=== PATIENT | female | born 1960 | race Caucasian/White ===

== ENCOUNTER → 2016-02-26 | Outpatient (REF) | payer OTHER ==
[~2016-02-26] MED LIST: /MOM400 PO; /ONDA4TA OR; ACET500C PO; ACET65TA OR; ASPI325T PO; ATOR40TA PO; CARV6.25 PO; CIPRODEX AD; COLA100C2; COLA50CA3 PO; EFFI10TA4 PO; EMLA2.5C TOP; FLAG500T PO; FURO20TA2 PO; HYDR25TA8 OR; IBUPPOW25; ISOS60TA2 PO; LIDO1DIS2 TD; LORTAB; MILKSUS OR; MOTRIN; Motrin; NAPR375T2 PO; NEUR300C PO; NO HISTORICAL MEDS; PERC7.5T8 OR; PREDNISONE TAPER PO; PREVACID15 PO; SENO8.6T11 PO; SENO8.6T9 GT; VALT1TAB PO; VICO5TAB; VIT D3 PO; VITA500047 PO; VITAMIN; VITAMIND; Vicodin; ZOCOR20 PO; ZOFR4TAB3 PO; [UNRECOGNIZED DRUG - CODE] PO; [UNRECOGNIZED DRUG - CODE] PO
== END ==
LOC: M LAB REF 20:20
PROVIDERS: ATTEND Physician Assistant
DX: R30.0 Dysuria (principal)

== ENCOUNTER 2016-02-28 20:55 | Emergency (ER) | payer OTHER ==
[2016-02-28] MEDS ORDERED: ONDANSETRON 4MG/2ML VIAL (J2405) As Ordered ONE (22:51)
[2016-02-28] MEDS ORDERED: KETOROLAC 30 MG/ML VIAL (J1885) As Ordered ONE (22:51)
[2016-02-28 23:07] LABS: BASO # 0.1 K/mm3 (0.0-0.2); BASO % 1.7 % (0.0-1.0); EOS # 0.2 K/mm3 (0.0-0.50); EOS % 2.7 % (0.0-3.0); LARGE UNSTAINED CELL # 0.2 K/mm3 (0.0-0.4); LARGE UNSTAINED CELL % 2.7 % (0.0-4.0); LYMPH # 3.8 K/mm3 (1.5-4.5); MEAN CORPUSCULAR HEMOGLOBIN 28.4 pg (27.0-33.0); MEAN CORPUSCULAR HGB CONC 32.1 g/dl (32.0-36.5); MEAN CORPUSCULAR VOLUME 88.5 fl (80.0-96.0); MONO # 0.4 K/mm3 (0.0-0.8); MONO % 5.3 % (0.0-5.0); NEUTROPHILS # 3.5 K/mm3 (1.8-7.7); NEUTROPHILS % 43.6 % (36.0-66.0); PLATELET COUNT, AUTOMATED 191 k/mm3 (150-450); RED CELL DISTRIBUTION WIDTH 13.9 % (11.5-14.5)
[2016-02-28 23:47] LABS: ALBUMIN 3.8 GM/DL (3.2-5.2); ALBUMIN/GLOBULIN RATIO 1.19 (1.00-1.93); ALKALINE PHOSPHATASE 97 U/L (45-117); ALT/SGPT 17 U/L (12-78); AMYLASE 88 U/L (25-115); ANION GAP 8 MEQ/L (8-16); AST/SGOT 25 U/L (15-37); BILIRUBIN,DIRECT 0.1 MG/DL (0.0-0.2); BILIRUBIN,TOTAL 0.3 MG/DL (0.2-1.0); BLOOD UREA NITROGEN 16 MG/DL (7-18); CALCIUM LEVEL 8.7 MG/DL (8.5-10.1); CARBON DIOXIDE LEVEL 28 MEQ/L (21-32); CHLORIDE LEVEL 107 MEQ/L (98-107); CREATININE FOR GFR 0.77 MG/DL (0.55-1.02); GLOMERULAR FILTRATION RATE > 60.0 (>51); GLUCOSE, FASTING 84 MG/DL (70-105); POTASSIUM SERUM 3.8 MEQ/L (3.5-5.1); SODIUM LEVEL 143 MEQ/L (136-145)
[2016-02-28] MEDS ORDERED: MORPHINE 2 MG/ML 1ML SYRINGE As Ordered ONE (23:53)
[2016-02-28] MEDS ORDERED: ISOVUE-370 76% 100ML VIAL (Q9967) As Ordered ONE (23:53)
[2016-02-29] MEDS ORDERED: ONDANSETRON 4MG/2ML VIAL (J2405) As Ordered ONE (00:30)
--- NOTE | 2016-02-29 00:30 | REPUSA ---
CLINICAL HISTORY: Abdominal pain. TECHNIQUE: Multiple axial, sagittal and coronal CT images were obtained through the abdomen and pelvi s after administration of intravenous contrast material. Images were obtained before and after IV con trast administration. COMMENTS: The liver is of uniform attenuation without mass or defect. There is no intra or extrahepatic biliary ductal dilatation. The spleen is normal. The gallbladder is surgically absent. The pancreas is of no rmal contour and attenuation characteristics. There is no evidence of adrenal mass. Both kidneys demonstrate prompt and equal nephrograms. The kidneys are normal in size, shape and conf iguration. There is no evidence of renal or ureteral mass. No renal or ureteral calculi are identifie d. There is no hydroureter or hydronephrosis. Status post ventral abdominal hernia repair No evidence for appendicitis. There is relatively severe wall thickening noted involving all small b owel segments compatible with enteritis. Jejunum is most involved. No evidence for small or large bowel obstruction. There is no evidence of abdominal ascites or lympha denopathy. There is no evidence of intrinsic or extrinsic bladder mass. There is no pelvic ascites or lymphadeno ann. Status post complete hysterectomy. Images of the lung bases show no evidence of pleural or parenchymal mass. There are no pleural effusi ons. The bony structures are free of lytic or blastic lesions. Multilevel degenerative changes are seen in volving the thoracolumbar spine. Scattered calcifications are seen involving the aorta and major bran ches compatible with atherosclerosis. IMPRESSION: Enteritis, jejunum is most severely involved infectious and inflammatory etiologies are considered.. Thank you for your kind referral of this patient.
--- NOTE | 2016-02-29 01:02 | EDDOCDS ---
Physician Documentation [facility] Name: Nimco Camp Age: 56 yrs Sex: Female : 1960 Arrival Date: 02/28/2016 Time: 20:55 Bed I5 / M5 Private MD: Amy Gil A Disposition: 02/29/16 00:43 Discharged to Home/Self Care. Impression: Generalized abdominal pain - ENTERITIS, Abnormal levels of other serum enzymes - ELEVATED LIPASE. - Condition is Stable. - Discharge Instructions: Abdominal Pain, Adult. - Prescriptions for Cipro 500 mg Oral Tablet - take 1 tablet by ORAL route every 12 hours; 20 tablet. Flagyl 500 mg Oral Tablet - take 1 tablet by ORAL route every 8 hours for 10 days; 30 tablet. Prednisone 20 mg Oral Tablet - take 2 tablet by ORAL route once daily for 5 days; 10 tablet. ZOFRAN ODT 4 mg - dissolve 1 tablet by ORAL route 4 times per day As needed do not chew, do not swallow whole; 10 tablet. - Medication Reconciliation, Local Pharmacy Hours form. - Follow up: Amy Gil; When: 2 - 3 days; Reason: Recheck today's complaints, Continuance of care. - Problem is new. - Symptoms have improved. - Notes: USE MEDICATIONS INSTRUCTED, STOP BACTRIM, FOLLOW UP WITH YOUR DOCTOR TO RECHECK YOUR LIPASE LEVEL, RETURN TO THE ER IF THE SYMPTOMS WORSEN OR BECOME CONCERNING Historical: - Allergies: Vicodin (Rash); Dilaudid; Biaxin (Rash); Bees; - Home Meds: 1. multivitamin Oral tab 1 tab daily (Last dose: 02/27/2016 08:00) 2. aspirin 81 mg Oral chew 1 tab once daily (Last dose: 02/28/2016 08:00) 3. Bactrim DS 800-160 mg Oral tab 2 times per day (Last dose: 02/28/2016 18:00) 4. Coreg 3.125 mg Oral tab 2 times per day (Last dose: 02/28/2016 06:00) 5. omeprazole 20 mg Oral TbEC 20 mg daily (Last dose: 02/28/2016 06:00) 6. nitroglycerin 0.4 mg SL subl 1 tab every 5 minutes (Last dose: Unknown) - PMHx: [place]; - PSHx: Hysterectomy; Carpal Tunnel Repair- Bilateral; Cholecystectomy; Appendectomy; Stents, Coronary; benign tumor removed from abdomen; umbilical hernia repair with mesh; gastric bypass 09/2014; - Social history: Smoking status: Patient states former smoker of tobacco. Patient/guardian denies using alcohol, street drugs, No barriers to communication noted, The patient speaks fluent Albanian, Speaks appropriately for age. - Family history: Not pertinent. - : The pt / caregiver states he / she is not on anticoagulants. Home medication list is obtained from the patient. - Exposure Risk Screening:: None identified. Vital Signs: 02/27 20:56 BP 162 / 79; Pulse 62; Resp 18 S; Temp 98.0(O); Pulse Ox 100% on R/A; Weight 55.79 kg / dd6 123 lbs (R); Height 5 ft. 2 in. (157.48 cm) (R); Pain 09/23; 02/28 00:50 BP 146 / 83; Pulse 89; Resp 18; Temp 98.2; Pulse Ox 96% ; Pain 2/10; ajs 00:59 Pain 2/10; slm 02/27 20:56 Body Mass Index 22.50 (55.79 kg, 157.48 cm) dd6 MDM: 02/27 22:36 Undress patient appropriately for examination ordered. ck7 22:36 Ondansetron 4 mg IVP once ordered. ck7 22:36 ketorolac 30 mg IVP once ordered. ck7 22:36 NS 0.9% 1000 ml IV at bolus once ordered. ck7 22:36 IV Saline Lock ordered. ck7 22:38 Amylase Ordered. EDMS 22:38 Basic Metabolic Profile Ordered. EDMS 22:38 CBC with Diff Ordered. EDMS 22:38 Lipase Ordered. EDMS 22:38 Liver Profile Ordered. EDMS 22:38 Urinalysis Ordered. EDMS 22:38 Urine Culture Ordered. EDMS 22:39 NOTHING BY MOUTH+DIET ordered. EDMS 23:07 Financial registration complete. gjb 23:21 CBC with Diff Reviewed. ck7 23:21 Urinalysis Reviewed. ck7 23:23 CT ABD & PELVIS: IV Contrast Only Ordered. EDMS 23:24 [facility] Payment Agreement was scanned into [employer] and attached to record. gjb 23:48 Lipase Reviewed. ck7 23:48 Amylase Reviewed. ck7 23:48 Basic Metabolic Profile Reviewed. ck7 23:48 Liver Profile Reviewed. ck7 23:50 morphine 2 mg IVP once ordered. ck7 02/28 00:29 Ondansetron 4 mg IVP once ordered. af2 00:38 CT ABD & PELVIS: IV Contrast Only Reviewed. ck7 Administered Medications: 02/27 22:58 Drug: ketorolac 30 mg [ketorolac 30 mg/mL (1 mL) injection solution (1 mL)] Route: IVP; af2 Site: left antecubital; 22:58 Drug: NS 0.9% 1000 ml [sodium chloride 0.9 % intravenous solution] Route: IV; Rate: af2 bolus; Site: left antecubital; 22:59 Drug: Ondansetron 4 mg [ondansetron HCl 2 mg/mL intravenous solution (2 mL)] Route: af2 IVP; Site: left antecubital; 23:58 Drug: morphine 2 mg [morphine 2 mg/mL intravenous cartridge (1 mL)] Route: IVP; Site: af2 left antecubital; 02/28 00:59 Follow up: Pain 2/10 Adult sl 00:33 Drug: Ondansetron 4 mg [ondansetron HCl 2 mg/mL intravenous solution (2 mL)] Route: af2 IVP; Site: left antecubital; 00:59 Follow up: Response: Nausea is decreased slm Signatures: Dispatcher [employer] EDMS Karan Bryant, LEDYC RPA-Cck7 Yasmin Arvizu RN RN ttb Valery Tobin LPN LPN m Kenzie Gentile RN RN af2 Miranda Gayle The chart was reviewed and I authenticate all verbal orders and agree with the evaluation and treatment provided.Attachments: 02/27 23:24 [facility] Payment Agreement [email or web address] [email or web address]
--- NOTE | 2016-02-29 01:02 | EDDOCDS ---
Nurse's Notes [facility] Name: Nimco Camp Age: 56 yrs Sex: Female : 1960 Arrival Date: 02/28/2016 Time: 20:55 Bed I5 / M5 Private MD: Amy Gil A Diagnosis: Generalized abdominal pain-ENTERITIS;Abnormal levels of other serum enzymes-ELEVATED LIPASE Presentation: 02/27 21:02 Presenting complaint: Patient states: "possible kidney stone, I think". Seen at Urgent ttb Care on with negative UA. "extreme lower abd and lower back pain". Denies dysuria, hematuria. Acute neurological deficits are not present. Mechanism of Injury: No Mechanism of Injury. Adult Sepsis Screening: The patient does not have new or worsening altered mentation. Patient's respiratory rate is less than 22. Systolic blood pressure is greater than 100. Patient has a qSOFA score of 0- Negative Sepsis Screen. Suicide/Homicide risk assessment- the patient denies having any suicidal and/or homicidal ideations and does not present with any other emotional, behavioral or mental health complaints. Status: The patient is a dependent. Transition of care: patient was not received from another setting of care. 21:02 Acuity: LUANN Level 3 ttb 21:02 Method Of Arrival: Walkin/Carried/Asstd ttb Triage Assessment: 21:06 General: Appears in no apparent distress, well nourished, well groomed, Behavior is ttb appropriate for age, cooperative, pleasant. Pain: Location: lower abd and lower back Pain currently is 7 out of 10 on a pain scale. HIV screening NA for this visit Offered previously. Neurological: Level of Consciousness is awake, alert. Cardiovascular: Chest pain is denied. Respiratory: No deficits noted. Airway is patent Respiratory effort is even, unlabored, Denies cough, shortness of breath. GI: Reports diarrhea, lower abdominal pain, nausea. : Denies burning with urination, urinary frequency, urgency. Derm: Skin is normal. Musculoskeletal: Range of motion intact in all extremities. Historical: - Allergies: Vicodin (Rash); Dilaudid; Biaxin (Rash); Bees; - Home Meds: 1. multivitamin Oral tab 1 tab daily (Last dose: 02/27/2016 08:00) 2. aspirin 81 mg Oral chew 1 tab once daily (Last dose: 02/28/2016 08:00) 3. Bactrim DS 800-160 mg Oral tab 2 times per day (Last dose: 02/28/2016 18:00) 4. Coreg 3.125 mg Oral tab 2 times per day (Last dose: 02/28/2016 06:00) 5. omeprazole 20 mg Oral TbEC 20 mg daily (Last dose: 02/28/2016 06:00) 6. nitroglycerin 0.4 mg SL subl 1 tab every 5 minutes (Last dose: Unknown) - PMHx: [place]; - PSHx: Hysterectomy; Carpal Tunnel Repair- Bilateral; Cholecystectomy; Appendectomy; Stents, Coronary; benign tumor removed from abdomen; umbilical hernia repair with mesh; gastric bypass 09/2014; - Social history: Smoking status: Patient states former smoker of tobacco. Patient/guardian denies using alcohol, street drugs, No barriers to communication noted, The patient speaks fluent Divehi, Speaks appropriately for age. - Family history: Not pertinent. - : The pt / caregiver states he / she is not on anticoagulants. Home medication list is obtained from the patient. - Exposure Risk Screening:: None identified. Screenin:59 Screening information is obtained from the patient. Fall risk: No risks identified. af2 Assistance ADL's: requires no assistance with activities of daily living. Abuse/DV Screen: The patient / caregiver reports he/she is: not in a situation that causes fear, pain or injury. Nutritional screening: No deficits noted. Advance Directives: Currently, there is no health care proxy. home support is adequate. Assessment: 22:57 General: Appears in no apparent distress, Behavior is cooperative. Neurological: Level ms2 of Consciousness is awake, alert, obeys commands. Respiratory: No deficits noted. Airway is patent Respiratory effort is even, unlabored, Respiratory pattern is regular, symmetrical. GI: Abdomen is flat, non- distended. Derm: Skin is pink, warm & dry. Musculoskeletal: Range of motion intact in all extremities. 23:49 General: Appears in no apparent distress, Behavior is cooperative, rr even and af2 unlabored. skin w/d/i. pt c/o further pain. provider notified. no new orders received. will continue to monitor. . 02/28 00:09 General: pt transported to CT at this time, tolerated procedure well. PIV patent, free af2 of edema and erythema. pt c/o nausea, provider notified.. 00:33 General: Appears in no apparent distress, Behavior is cooperative, pt medicated for af2 nausea per order at this time. rr even and unlabored. skin w/d/i. . Neurological: Level of Consciousness is awake, alert. Respiratory: Airway is patent Respiratory effort is even, unlabored. Derm: Skin is normal. 00:58 Reassessment: Patient appears in no apparent distress at this time. Patient states slm feeling better. Patient states symptoms have improved. General: Appears in no apparent distress, comfortable. Respiratory: Airway is patent Respiratory effort is even, unlabored. Vital Signs: 02/27 20:56 BP 162 / 79; Pulse 62; Resp 18 S; Temp 98.0(O); Pulse Ox 100% on R/A; Weight 55.79 kg dd6 (R); Height 5 ft. 2 in. (157.48 cm) (R); Pain 8/10; 02/28 00:50 BP 146 / 83; Pulse 89; Resp 18; Temp 98.2; Pulse Ox 96% ; Pain 2/10; ajs 00:59 Pain 2/10; slm 02/27 20:56 Body Mass Index 22.50 (55.79 kg, 157.48 cm) dd6 Vitals: 02/27 20:56 Log In Time: February 28, 2016 at 20:54. dd6 ED Course: 20:56 Patient visited by Junior Morales PCA. dd6 20:56 Amy Gil is Private Physician. dd6 20:56 Patient moved to Waiting dd6 20:57 Patient moved to Pre RCE dd6 21:03 Triage Initiated ttb 21:07 Patient visited by Yasmin Arvizu RN. ttb 21:57 Patient moved to Triage 2 jmb 22:24 [facility]C [facility] ck7 22:24 Jey Saenz DO is Attending Physician. ck7 22:24 Patient visited by Karan Bryant RPA-C. ck7 22:37 Patient moved to I5 / jmb 22:56 Patient visited by Kamran Stone RN. ms2 22:56 Amylase Sent. ms2 22:56 Basic Metabolic Profile Sent. ms2 22:56 CBC with Diff Sent. ms2 22:56 Lipase Sent. ms2 22:56 Liver Profile Sent. ms2 22:57 The patient / caregiver is instructed regarding the plan of care and ED course. ms2 22:57 Inserted peripheral IV: 20gauge IV in left antecubital area Patient tolerated the ms2 procedure well. 22:59 Patient visited by Kenzie eGntile RN. af2 23:24 [facility] Payment Agreement was scanned into [employer] and attached to record. gjb 23:35 Patient visited by Karan Bryant RPA-C. ck7 23:52 Patient visited by Kenzie Gentile RN. af2 02/28 00:09 Patient visited by Kenzie Gentile RN. af2 00:10 Patient visited by Kenzie Gentile RN. af2 00:34 Patient visited by Kenzie Gentile RN. af2 00:36 CT ABD & PELVIS: IV Contrast Only Returned. EDMS 00:43 Amy Gil is Referral Physician. ck7 00:52 Patient visited by Arabella Rosas. ajs 00:58 Valery Tobin LPN is Primary Nurse. slm 00:58 Discontinued lock intact, bleeding controlled, pressure dressing applied, No slm redness/swelling at site. No procedures done that require assistance. 01:00 Patient visited by Valery Tobin LPN. slm Administered Medications: 02/27 22:58 Drug: ketorolac 30 mg [ketorolac 30 mg/mL (1 mL) injection solution (1 mL)] Route: IVP; af2 Site: left antecubital; 22:58 Drug: NS 0.9% 1000 ml [sodium chloride 0.9 % intravenous solution] Route: IV; Rate: af2 bolus; Site: left antecubital; 22:59 Drug: Ondansetron 4 mg [ondansetron HCl 2 mg/mL intravenous solution (2 mL)] Route: af2 IVP; Site: left antecubital; 23:58 Drug: morphine 2 mg [morphine 2 mg/mL intravenous cartridge (1 mL)] Route: IVP; Site: af2 left antecubital; 02/28 00:59 Follow up: Pain 03/26 Adult slm 00:33 Drug: Ondansetron 4 mg [ondansetron HCl 2 mg/mL intravenous solution (2 mL)] Route: af2 IVP; Site: left antecubital; 00:59 Follow up: Response: Nausea is decreased slm Order Results: Lab Order: Amylase; SPEC'M 02/28/16 22:49 Test: AMYLASE; Value: 88; Range: 25-115; Units: U/L; Status: F Lab Order: Basic Metabolic Profile; SPEC'M 02/28/16 22:49 Test: GLUCOSE, FASTING; Value: 84; Range: 70-105; Units: MG/DL; Status: F Test: BLOOD UREA NITROGEN; Value: 16; Range: 7-18; Units: MG/DL; Status: F Test: CREATININE FOR GFR; Value: 0.77; Range: 0.55-1.02; Units: MG/DL; Status: F Test: GLOMERULAR FILTRATION RATE; Value: > 60.0; Range: >51; Status: F Test: SODIUM LEVEL; Value: 143; Range: 136-145; Units: MEQ/L; Status: F Test: POTASSIUM SERUM; Value: 3.8; Range: 3.5-5.1; Units: MEQ/L; Status: F Test: CHLORIDE LEVEL; Value: 107; Range: 98-107; Units: MEQ/L; Status: F Test: CARBON DIOXIDE LEVEL; Value: 28; Range: 21-32; Units: MEQ/L; Status: F Test: ANION GAP; Value: 8; Range: 8-16; Units: MEQ/L; Status: F Test: CALCIUM LEVEL; Value: 8.7; Range: 8.5-10.1; Units: MG/DL; Status: F Test Note: ; Units are mL/min/1.73 m2 Chronic Kidney Disease Staging per NKF: Stage I & II GFR >=60 Normal to Mildly Decreased Stage III GFR 30-59 Moderately Decreased Stage IV GFR 15-29 Severely Decreased Stage V GFR <15 Very Little GFR Left ESRD GFR <15 on LODE [employer] BLASTING Lab Order: CBC with Diff; SPEC'M 02/28/16 22:49 Test: WHITE BLOOD COUNT; Value: 8.0; Range: 4.0-10.0; Units: K/mm3; Status: F Test: RED BLOOD COUNT; Value: 4.25; Range: 4.00-5.40; Units: M/mm3; Status: F Test: HEMOGLOBIN; Value: 12.1; Range: 12.0-16.0; Units: g/dl; Status: F Test: HEMATOCRIT; Value: 37.6; Range: 36.0-47.0; Units: %; Status: F Test: MEAN CORPUSCULAR VOLUME; Value: 88.5; Range: 80.0-96.0; Units: fl; Status: F Test: MEAN CORPUSCULAR HEMOGLOBIN; Value: 28.4; Range: 27.0-33.0; Units: pg; Status: F Test: MEAN CORPUSCULAR HGB CONC; Value: 32.1; Range: 32.0-36.5; Units: g/dl; Status: F Test: RED CELL DISTRIBUTION WIDTH; Value: 13.9; Range: 11.5-14.5; Units: %; Status: F Test: PLATELET COUNT, AUTOMATED; Value: 191; Range: 150-450; Units: k/mm3; Status: F Test: NEUTROPHILS %; Value: 43.6; Range: 36.0-66.0; Units: %; Status: F Test: LYMPH %; Value: 44.0; Range: 24.0-44.0; Units: %; Status: F Test: MONO %; Value: 5.3; Range: 0.0-5.0; Abnormal: Above high normal; Units: %; Status: F Test: EOS %; Value: 2.7; Range: 0.0-3.0; Units: %; Status: F Test: BASO %; Value: 1.7; Range: 0.0-1.0; Abnormal: Above high normal; Units: %; Status: F Test: LARGE UNSTAINED CELL %; Value: 2.7; Range: 0.0-4.0; Units: %; Status: F Test: NEUTROPHILS #; Value: 3.5; Range: 1.8-7.7; Units: K/mm3; Status: F Test: LYMPH #; Value: 3.8; Range: 1.5-4.5; Units: K/mm3; Status: F Test: MONO #; Value: 0.4; Range: 0.0-0.8; Units: K/mm3; Status: F Test: EOS #; Value: 0.2; Range: 0.0-0.50; Units: K/mm3; Status: F Test: BASO #; Value: 0.1; Range: 0.0-0.2; Units: K/mm3; Status: F Test: LARGE UNSTAINED CELL #; Value: 0.2; Range: 0.0-0.4; Units: K/mm3; Status: F Lab Order: Lipase; [facility] 02/28/16 22:49 Test: LIPASE; Value: 443; Range: 73-393; Abnormal: Above high normal; Units: U/L; Status: F Lab Order: Liver Profile; [facility] 02/28/16 22:49 Test: AST/SGOT; Value: 25; Range: 15-37; Units: U/L; Status: F Test: ALT/SGPT; Value: 17; Range: 12-78; Units: U/L; Status: F Test: ALKALINE PHOSPHATASE; Value: 97; Range: 45-117; Units: U/L; Status: F Test: BILIRUBIN,TOTAL; Value: 0.3; Range: 0.2-1.0; Units: MG/DL; Status: F Test: BILIRUBIN,DIRECT; Value: 0.1; Range: 0.0-0.2; Units: MG/DL; Status: F Test: TOTAL PROTEIN; Value: 7.0; Range: 6.4-8.2; Units: GM/DL; Status: F Test: ALBUMIN; Value: 3.8; Range: 3.2-5.2; Units: GM/DL; Status: F Test: ALBUMIN/GLOBULIN RATIO; Value: 1.19; Range: 1.00-1.93; Status: F Lab Order: Urinalysis; [facility] 02/28/16 22:40 Test: APPEARANCE, URINE; Value: CLEAR; Range: CLEAR; Status: F Test: COLOR, URINE; Value: YELLOW; Range: YELLOW; Status: F Test: PH,URINE; Value: 6.0; Range: 5.0-9.0; Units: UNITS; Status: F Test: SPECIFIC GRAVITY URINE AUTO; Value: 1.018; Range: 1.002-1.035; Status: F Test: PROTEIN, URINE AUTO; Value: NEGATIVE; Range: NEGATIVE; Units: mg/dL; Status: F Test: GLUCOSE, URINE (UA) AUTO; Value: NEGATIVE; Range: NEGATIVE; Units: mg/dL; Status: F Test: KETONE, URINE AUTO; Value: NEGATIVE; Range: NEGATIVE; Units: mg/dL; Status: F Test: UROBILINOGEN, URINE AUTO; Value: 0.2; Range: 0.0-2.0; Units: mg/dL; Status: F Test: BILIRUBIN, URINE AUTO; Value: NEGATIVE; Range: NEGATIVE; Status: F Test: NITRITE, URINE AUTO; Value: NEGATIVE; Range: NEGATIVE; Status: F Test: LEUKOCYTE ESTERASE, URINE AUTO; Value: TRACE; Range: NEGATIVE; Abnormal: Above high normal; Status: F Test: BLOOD, URINE BLOOD; Value: NEGATIVE; Range: NEGATIVE; Status: F Test: WBC, URINE AUTO; Value: 1; Range: 0-3; Units: /HPF; Status: F Test: RBC, URINE AUTO; Value: 0; Range: 0-3; Units: /HPF; Status: F Test: BACTERIA, URINE AUTO; Value: NEGATIVE; Range: NEGATIVE; Status: F Test: SQUAMOUS EPITHELIAL CELL UR AU; Value: 0; Range: 0-6; Units: /HPF; Status: F Test: HYALINE CAST, URINE AUTO; Value: 0; Range: 0-1; Units: /LPF; Status: F Radiology Order: CT ABD & PELVIS: IV Contrast Only Test: CT ABD & PELVIS: IV Contrast Only REASON FOR EXAMINATION: LEFT FLANK AND ABDOMINAL PAIN; ; CLINICAL HISTORY: Abdominal pain.; TECHNIQUE: Multiple axial, sagittal and coronal CT images were obtained through the abdomen and pelvi; s after administration of intravenous contrast material. Images were obtained before and after IV con; trast administration.; COMMENTS:; The liver is of uniform attenuation without mass or defect. There is no intra or extrahepatic biliary; ductal dilatation. The spleen is normal. The gallbladder is surgically absent. The pancreas is of no; rmal contour and attenuation characteristics. There is no evidence of adrenal mass.; Both kidneys demonstrate prompt and equal nephrograms. The kidneys are normal in size, shape and conf; iguration. There is no evidence of renal or ureteral mass. No renal or ureteral calculi are identifie; d. There is no hydroureter or hydronephrosis.; Status post ventral abdominal hernia repair; No evidence for appendicitis. There is relatively severe wall thickening noted involving all small b; owel segments compatible with enteritis. Jejunum is most involved.; No evidence for small or large bowel obstruction. There is no evidence of abdominal ascites or lympha; denopathy.; There is no evidence of intrinsic or extrinsic bladder mass. There is no pelvic ascites or lymphadeno; ann. Status post complete hysterectomy.; Images of the lung bases show no evidence of pleural or parenchymal mass. There are no pleural effusi; ons.; The bony structures are free of lytic or blastic lesions. Multilevel degenerative changes are seen in; volving the thoracolumbar spine. Scattered calcifications are seen involving the aorta and major bran; ches compatible with atherosclerosis.; IMPRESSION:; Enteritis, jejunum is most severely involved infectious and inflammatory etiologies are considered..; Thank you for your kind referral of this patient.; ; Outcome: 00:43 Discharge ordered by Provider. ck7 00:59 Discharge Assessment: Patient awake, alert and oriented x 3. No cognitive and/or slm functional deficits noted. Patient verbalized understanding of disposition instructions. 00:59 Discharge Assessment: Patient awake, alert and oriented x 3. No cognitive and/or slm functional deficits noted. Patient verbalized understanding of disposition instructions. patient administered narcotics - yes. Pt provided with safe discharge. The following High Risk Discharge criteria are identified: None. Discharged to home ambulatory, with friend. Condition: good. Discharge instructions given to patient, Instructed on discharge instructions, follow up and referral plans. medication usage, Demonstrated understanding of instructions, medications, Pt was receptive of discharge instructions/ teaching. Prescriptions given X 4. CT Study completed. Property :Personal belongings accompany Pt. 01:01 Patient left the ED. slm Signatures: Dispatcher [employer] EDMS Kamran Stone,RN RN ms2 Junior Morales, MECHANICAL APPLICATIONS ENGINEER MECHANICAL APPLICATIONS ENGINEER dd6 Arabella Rosas Christopher, RPA-C RPA-Cck7 Yasmin Arvizu RN Jayy Rudolph RN RN jmb McIntyre, Stephanie,GUILHERME [employer]MED C[employer] PROTECTION OFFICER slKenzie Corcoran RN RN af2 Beck, Gabriela gjb MTDD
--- NOTE | 2016-03-02 02:02 | EDDOCDS ---
Physician Documentation [facility] Name: Nimco Camp Age: 56 yrs Sex: Female : 1960 Arrival Date: 02/28/2016 Time: 20:55 Bed I5 / M5 Private MD: Amy Gil A Disposition: 02/29/16 00:43 Discharged to Home/Self Care. Impression: Generalized abdominal pain - ENTERITIS, Abnormal levels of other serum enzymes - ELEVATED LIPASE. - Condition is Stable. - Discharge Instructions: Abdominal Pain, Adult. - Prescriptions for Cipro 500 mg Oral Tablet - take 1 tablet by ORAL route every 12 hours; 20 tablet. Flagyl 500 mg Oral Tablet - take 1 tablet by ORAL route every 8 hours for 10 days; 30 tablet. Prednisone 20 mg Oral Tablet - take 2 tablet by ORAL route once daily for 5 days; 10 tablet. ZOFRAN ODT 4 mg - dissolve 1 tablet by ORAL route 4 times per day As needed do not chew, do not swallow whole; 10 tablet. - Medication Reconciliation, Local Pharmacy Hours form. - Follow up: Amy Gil; When: 2 - 3 days; Reason: Recheck today's complaints, Continuance of care. - Problem is new. - Symptoms have improved. - Notes: USE MEDICATIONS INSTRUCTED, STOP BACTRIM, FOLLOW UP WITH YOUR DOCTOR TO RECHECK YOUR LIPASE LEVEL, RETURN TO THE ER IF THE SYMPTOMS WORSEN OR BECOME CONCERNING Historical: - Allergies: Vicodin (Rash); Dilaudid; Biaxin (Rash); Bees; - Home Meds: 1. multivitamin Oral tab 1 tab daily (Last dose: 02/27/2016 08:00) 2. aspirin 81 mg Oral chew 1 tab once daily (Last dose: 02/28/2016 08:00) 3. Bactrim DS 800-160 mg Oral tab 2 times per day (Last dose: 02/28/2016 18:00) 4. Coreg 3.125 mg Oral tab 2 times per day (Last dose: 02/28/2016 06:00) 5. omeprazole 20 mg Oral TbEC 20 mg daily (Last dose: 02/28/2016 06:00) 6. nitroglycerin 0.4 mg SL subl 1 tab every 5 minutes (Last dose: Unknown) - PMHx: [place]; - PSHx: Hysterectomy; Carpal Tunnel Repair- Bilateral; Cholecystectomy; Appendectomy; Stents, Coronary; benign tumor removed from abdomen; umbilical hernia repair with mesh; gastric bypass 09/2014; - Social history: Smoking status: Patient states former smoker of tobacco. Patient/guardian denies using alcohol, street drugs, No barriers to communication noted, The patient speaks fluent Chinese, Speaks appropriately for age. - Family history: Not pertinent. - : The pt / caregiver states he / she is not on anticoagulants. Home medication list is obtained from the patient. - Exposure Risk Screening:: None identified. Vital Signs: 02/27 20:56 BP 162 / 79; Pulse 62; Resp 18 S; Temp 98.0(O); Pulse Ox 100% on R/A; Weight 55.79 kg / dd6 123 lbs (R); Height 5 ft. 2 in. (157.48 cm) (R); Pain 09/23; 02/28 00:50 BP 146 / 83; Pulse 89; Resp 18; Temp 98.2; Pulse Ox 96% ; Pain 2/10; ajs 00:59 Pain 2/10; slm 02/27 20:56 Body Mass Index 22.50 (55.79 kg, 157.48 cm) dd6 MDM: 02/27 22:36 Undress patient appropriately for examination ordered. ck7 22:36 Ondansetron 4 mg IVP once ordered. ck7 22:36 ketorolac 30 mg IVP once ordered. ck7 22:36 NS 0.9% 1000 ml IV at bolus once ordered. ck7 22:36 IV Saline Lock ordered. ck7 22:38 Amylase Ordered. EDMS 22:38 Basic Metabolic Profile Ordered. EDMS 22:38 CBC with Diff Ordered. EDMS 22:38 Lipase Ordered. EDMS 22:38 Liver Profile Ordered. EDMS 22:38 Urinalysis Ordered. EDMS 22:38 Urine Culture Ordered. EDMS 22:39 NOTHING BY MOUTH+DIET ordered. EDMS 23:07 Financial registration complete. gjb 23:21 CBC with Diff Reviewed. ck7 23:21 Urinalysis Reviewed. ck7 23:23 CT ABD & PELVIS: IV Contrast Only Ordered. EDMS 23:24 [facility] Payment Agreement was scanned into [employer] and attached to record. gjb 23:48 Lipase Reviewed. ck7 23:48 Amylase Reviewed. ck7 23:48 Basic Metabolic Profile Reviewed. ck7 23:48 Liver Profile Reviewed. ck7 23:50 morphine 2 mg IVP once ordered. ck7 02/28 00:29 Ondansetron 4 mg IVP once ordered. af2 00:38 CT ABD & PELVIS: IV Contrast Only Reviewed. ck7 07:58 T-Sheet-- Draft Copy was scanned into [employer] and attached to record. [facility] Administered Medications: 02/27 22:58 Drug: ketorolac 30 mg [ketorolac 30 mg/mL (1 mL) injection solution (1 mL)] Route: IVP; af2 Site: left antecubital; 22:58 Drug: NS 0.9% 1000 ml [sodium chloride 0.9 % intravenous solution] Route: IV; Rate: af2 bolus; Site: left antecubital; 22:59 Drug: Ondansetron 4 mg [ondansetron HCl 2 mg/mL intravenous solution (2 mL)] Route: af2 IVP; Site: left antecubital; 23:58 Drug: morphine 2 mg [morphine 2 mg/mL intravenous cartridge (1 mL)] Route: IVP; Site: af2 left antecubital; 02/28 00:59 Follow up: Pain [address] [facility] 00:33 Drug: Ondansetron 4 mg [ondansetron HCl 2 mg/mL intravenous solution (2 mL)] Route: af2 IVP; Site: left antecubital; 00:59 Follow up: Response: Nausea is decreased sl Signatures: [facility] ED[facility] Karan Bryant, LEDYC [id number] Yasmin Arvizu RN RN Valery Astorga LPN LPN Kenzie Corcoran RN RN af2 Miranda Gayle Sarah [facility] The chart was reviewed and I authenticate all verbal orders and agree with the evaluation and treatment provided.Attachments: 02/27 23:24 [facility] Payment Agreement gj 02/28 07:58 T-Sheet-- Draft Copy [facility] Chart Complete MTDD
--- NOTE | 2016-03-02 02:02 | EDDOCDS ---
Physician Documentation [facility] Name: Nimco Camp Age: 56 yrs Sex: Female : 1960 Arrival Date: 02/28/2016 Time: 20:55 Bed I5 / M5 Private MD: Amy Gil A Disposition: 02/29/16 00:43 Discharged to Home/Self Care. Impression: Generalized abdominal pain - ENTERITIS, Abnormal levels of other serum enzymes - ELEVATED LIPASE. - Condition is Stable. - Discharge Instructions: Abdominal Pain, Adult. - Prescriptions for Cipro 500 mg Oral Tablet - take 1 tablet by ORAL route every 12 hours; 20 tablet. Flagyl 500 mg Oral Tablet - take 1 tablet by ORAL route every 8 hours for 10 days; 30 tablet. Prednisone 20 mg Oral Tablet - take 2 tablet by ORAL route once daily for 5 days; 10 tablet. ZOFRAN ODT 4 mg - dissolve 1 tablet by ORAL route 4 times per day As needed do not chew, do not swallow whole; 10 tablet. - Medication Reconciliation, Local Pharmacy Hours form. - Follow up: Amy Gil; When: 2 - 3 days; Reason: Recheck today's complaints, Continuance of care. - Problem is new. - Symptoms have improved. - Notes: USE MEDICATIONS INSTRUCTED, STOP BACTRIM, FOLLOW UP WITH YOUR DOCTOR TO RECHECK YOUR LIPASE LEVEL, RETURN TO THE ER IF THE SYMPTOMS WORSEN OR BECOME CONCERNING Historical: - Allergies: Vicodin (Rash); Dilaudid; Biaxin (Rash); Bees; - Home Meds: 1. multivitamin Oral tab 1 tab daily (Last dose: 02/27/2016 08:00) 2. aspirin 81 mg Oral chew 1 tab once daily (Last dose: 02/28/2016 08:00) 3. Bactrim DS 800-160 mg Oral tab 2 times per day (Last dose: 02/28/2016 18:00) 4. Coreg 3.125 mg Oral tab 2 times per day (Last dose: 02/28/2016 06:00) 5. omeprazole 20 mg Oral TbEC 20 mg daily (Last dose: 02/28/2016 06:00) 6. nitroglycerin 0.4 mg SL subl 1 tab every 5 minutes (Last dose: Unknown) - PMHx: [place]; - PSHx: Hysterectomy; Carpal Tunnel Repair- Bilateral; Cholecystectomy; Appendectomy; Stents, Coronary; benign tumor removed from abdomen; umbilical hernia repair with mesh; gastric bypass 09/2014; - Social history: Smoking status: Patient states former smoker of tobacco. Patient/guardian denies using alcohol, street drugs, No barriers to communication noted, The patient speaks fluent Croatian, Speaks appropriately for age. - Family history: Not pertinent. - : The pt / caregiver states he / she is not on anticoagulants. Home medication list is obtained from the patient. - Exposure Risk Screening:: None identified. Vital Signs: 02/27 20:56 BP 162 / 79; Pulse 62; Resp 18 S; Temp 98.0(O); Pulse Ox 100% on R/A; Weight 55.79 kg / dd6 123 lbs (R); Height 5 ft. 2 in. (157.48 cm) (R); Pain 09/23; 02/28 00:50 BP 146 / 83; Pulse 89; Resp 18; Temp 98.2; Pulse Ox 96% ; Pain 2/10; ajs 00:59 Pain 2/10; slm 02/27 20:56 Body Mass Index 22.50 (55.79 kg, 157.48 cm) dd6 MDM: 02/27 22:36 Undress patient appropriately for examination ordered. ck7 22:36 Ondansetron 4 mg IVP once ordered. ck7 22:36 ketorolac 30 mg IVP once ordered. ck7 22:36 NS 0.9% 1000 ml IV at bolus once ordered. ck7 22:36 IV Saline Lock ordered. ck7 22:38 Amylase Ordered. EDMS 22:38 Basic Metabolic Profile Ordered. EDMS 22:38 CBC with Diff Ordered. EDMS 22:38 Lipase Ordered. EDMS 22:38 Liver Profile Ordered. EDMS 22:38 Urinalysis Ordered. EDMS 22:38 Urine Culture Ordered. EDMS 22:39 NOTHING BY MOUTH+DIET ordered. EDMS 23:07 Financial registration complete. gjb 23:21 CBC with Diff Reviewed. ck7 23:21 Urinalysis Reviewed. ck7 23:23 CT ABD & PELVIS: IV Contrast Only Ordered. EDMS 23:24 [facility] Payment Agreement was scanned into [employer] and attached to record. gjb 23:48 Lipase Reviewed. ck7 23:48 Amylase Reviewed. ck7 23:48 Basic Metabolic Profile Reviewed. ck7 23:48 Liver Profile Reviewed. ck7 23:50 morphine 2 mg IVP once ordered. ck7 02/28 00:29 Ondansetron 4 mg IVP once ordered. af2 00:38 CT ABD & PELVIS: IV Contrast Only Reviewed. ck7 07:58 T-Sheet-- Draft Copy was scanned into [employer] and attached to record. [facility] Administered Medications: 02/27 22:58 Drug: ketorolac 30 mg [ketorolac 30 mg/mL (1 mL) injection solution (1 mL)] Route: IVP; af2 Site: left antecubital; 22:58 Drug: NS 0.9% 1000 ml [sodium chloride 0.9 % intravenous solution] Route: IV; Rate: af2 bolus; Site: left antecubital; 22:59 Drug: Ondansetron 4 mg [ondansetron HCl 2 mg/mL intravenous solution (2 mL)] Route: af2 IVP; Site: left antecubital; 23:58 Drug: morphine 2 mg [morphine 2 mg/mL intravenous cartridge (1 mL)] Route: IVP; Site: af2 left antecubital; 02/28 00:59 Follow up: Pain 2 Adult [facility] 00:33 Drug: Ondansetron 4 mg [ondansetron HCl 2 mg/mL intravenous solution (2 mL)] Route: af2 IVP; Site: left antecubital; 00:59 Follow up: Response: Nausea is decreased sl Signatures: [facility] Kar[facility], LEDYC [id number] Yasmin Arvizu RN RN Valery Astorga LPN LPN Kenzie Corcoran RN RN af2 Miranda Gayle Sarah [facility] The chart was reviewed and I authenticate all verbal orders and agree with the evaluation and treatment provided.Attachments: 02/27 23:24 [facility] [place] Agreement gj 02/28 07:58 T-Sheet-- Draft Copy [facility] Chart Complete MTDD
--- NOTE | 2016-03-02 02:02 | EDDOCDS ---
Nurse's Notes [facility] Name: Nimco Camp Age: 56 yrs Sex: Female : 1960 Arrival Date: 02/28/2016 Time: 20:55 Bed I5 / M5 Private MD: Amy Gil A Diagnosis: Generalized abdominal pain-ENTERITIS;Abnormal levels of other serum enzymes-ELEVATED LIPASE Presentation: 02/27 21:02 Presenting complaint: Patient states: "possible kidney stone, I think". Seen at Urgent ttb Care on with negative UA. "extreme lower abd and lower back pain". Denies dysuria, hematuria. Acute neurological deficits are not present. Mechanism of Injury: No Mechanism of Injury. Adult Sepsis Screening: The patient does not have new or worsening altered mentation. Patient's respiratory rate is less than 22. Systolic blood pressure is greater than 100. Patient has a qSOFA score of 0- Negative Sepsis Screen. Suicide/Homicide risk assessment- the patient denies having any suicidal and/or homicidal ideations and does not present with any other emotional, behavioral or mental health complaints. Status: The patient is a dependent. Transition of care: patient was not received from another setting of care. 21:02 Acuity: LUANN Level 3 ttb 21:02 Method Of Arrival: Walkin/Carried/Asstd ttb Triage Assessment: 21:06 General: Appears in no apparent distress, well nourished, well groomed, Behavior is ttb appropriate for age, cooperative, pleasant. Pain: Location: lower abd and lower back Pain currently is 7 out of 10 on a pain scale. HIV screening NA for this visit Offered previously. Neurological: Level of Consciousness is awake, alert. Cardiovascular: Chest pain is denied. Respiratory: No deficits noted. Airway is patent Respiratory effort is even, unlabored, Denies cough, shortness of breath. GI: Reports diarrhea, lower abdominal pain, nausea. : Denies burning with urination, urinary frequency, urgency. Derm: Skin is normal. Musculoskeletal: Range of motion intact in all extremities. Historical: - Allergies: Vicodin (Rash); Dilaudid; Biaxin (Rash); Bees; - Home Meds: 1. multivitamin Oral tab 1 tab daily (Last dose: 02/27/2016 08:00) 2. aspirin 81 mg Oral chew 1 tab once daily (Last dose: 02/28/2016 08:00) 3. Bactrim DS 800-160 mg Oral tab 2 times per day (Last dose: 02/28/2016 18:00) 4. Coreg 3.125 mg Oral tab 2 times per day (Last dose: 02/28/2016 06:00) 5. omeprazole 20 mg Oral TbEC 20 mg daily (Last dose: 02/28/2016 06:00) 6. nitroglycerin 0.4 mg SL subl 1 tab every 5 minutes (Last dose: Unknown) - PMHx: MS; - PSHx: Hysterectomy; Carpal Tunnel Repair- Bilateral; Cholecystectomy; Appendectomy; Stents, Coronary; benign tumor removed from abdomen; umbilical hernia repair with mesh; gastric bypass 09/2014; - Social history: Smoking status: Patient states former smoker of tobacco. Patient/guardian denies using alcohol, street drugs, No barriers to communication noted, The patient speaks fluent Serbian, Speaks appropriately for age. - Family history: Not pertinent. - : The pt / caregiver states he / she is not on anticoagulants. Home medication list is obtained from the patient. - Exposure Risk Screening:: None identified. Screenin:59 Screening information is obtained from the patient. Fall risk: No risks identified. af2 Assistance ADL's: requires no assistance with activities of daily living. Abuse/DV Screen: The patient / caregiver reports he/she is: not in a situation that causes fear, pain or injury. Nutritional screening: No deficits noted. Advance Directives: Currently, there is no health care proxy. home support is adequate. Assessment: 22:57 General: Appears in no apparent distress, Behavior is cooperative. Neurological: Level ms2 of Consciousness is awake, alert, obeys commands. Respiratory: No deficits noted. Airway is patent Respiratory effort is even, unlabored, Respiratory pattern is regular, symmetrical. GI: Abdomen is flat, non- distended. Derm: Skin is pink, warm & dry. Musculoskeletal: Range of motion intact in all extremities. 23:49 General: Appears in no apparent distress, Behavior is cooperative, rr even and af2 unlabored. skin w/d/i. pt c/o further pain. provider notified. no new orders received. will continue to monitor. . 02/28 00:09 General: pt transported to CT at this time, tolerated procedure well. PIV patent, free af2 of edema and erythema. pt c/o nausea, provider notified.. 00:33 General: Appears in no apparent distress, Behavior is cooperative, pt medicated for af2 nausea per order at this time. rr even and unlabored. skin w/d/i. . Neurological: Level of Consciousness is awake, alert. Respiratory: Airway is patent Respiratory effort is even, unlabored. Derm: Skin is normal. 00:58 Reassessment: Patient appears in no apparent distress at this time. Patient states slm feeling better. Patient states symptoms have improved. General: Appears in no apparent distress, comfortable. Respiratory: Airway is patent Respiratory effort is even, unlabored. Vital Signs: 02/27 20:56 BP 162 / 79; Pulse 62; Resp 18 S; Temp 98.0(O); Pulse Ox 100% on R/A; Weight 55.79 kg dd6 (R); Height 5 ft. 2 in. (157.48 cm) (R); Pain 8/10; 02/28 00:50 BP 146 / 83; Pulse 89; Resp 18; Temp 98.2; Pulse Ox 96% ; Pain 2/10; ajs 00:59 Pain 2/10; slm 02/27 20:56 Body Mass Index 22.50 (55.79 kg, 157.48 cm) dd6 Vitals: 02/27 20:56 Log In Time: February 28, 2016 at 20:54. dd6 ED Course: 20:56 Patient visited by Junior Morales PCA. dd6 20:56 Amy Gil is Private Physician. dd6 20:56 Patient moved to Waiting dd6 20:57 Patient moved to Pre RCE dd6 21:03 Triage Initiated ttb 21:07 Patient visited by Yasmin Arvizu RN. ttb 21:57 Patient moved to Triage 2 jmb 22:24 [facility] ck7 22:24 Jey Saenz DO is Attending Physician. ck7 22:24 Patient visited by Karan Bryant RPA-C. ck7 22:37 Patient moved to I5 / jmb 22:56 Patient visited by Kamran Stone RN. ms2 22:56 Amylase Sent. ms2 22:56 Basic Metabolic Profile Sent. ms2 22:56 CBC with Diff Sent. ms2 22:56 Lipase Sent. ms2 22:56 Liver Profile Sent. ms2 22:57 The patient / caregiver is instructed regarding the plan of care and ED course. ms2 22:57 Inserted peripheral IV: 20gauge IV in left antecubital area Patient tolerated the ms2 procedure well. 22:59 Patient visited by Kenzie Gentile RN. af2 23:24 [facility] [place] was scanned into [employer] and attached to record. gjb 23:35 Patient visited by Karan Bryant RPA-C. ck7 23:52 Patient visited by Kenzie Gentile RN. af2 02/28 00:09 Patient visited by Kenzie Gentile RN. af2 00:10 Patient visited by Kenzie Gentile RN. af2 00:34 Patient visited by Kenzie Gentile RN. af2 00:36 CT ABD & PELVIS: IV Contrast Only Returned. EDMS 00:43 Amy Gil is Referral Physician. ck7 00:52 Patient visited by Arabella Rosas. ajs 00:58 Valery Tobin LPN is Primary Nurse. slm 00:58 Discontinued lock intact, bleeding controlled, pressure dressing applied, No slm redness/swelling at site. No procedures done that require assistance. 01:00 Patient visited by Valery Tobin LPN. slm 07:58 T-Sheet-- Draft Copy was scanned into [employer] and attached to record. [facility] Administered Medications: 02/27 22:58 Drug: ketorolac 30 mg [ketorolac 30 mg/mL (1 mL) injection solution (1 mL)] Route: IVP; af2 Site: left antecubital; 22:58 Drug: NS 0.9% 1000 ml [sodium chloride 0.9 % intravenous solution] Route: IV; Rate: af2 bolus; Site: left antecubital; :59 Drug: Ondansetron 4 mg [ondansetron HCl 2 mg/mL intravenous solution (2 mL)] Route: af2 IVP; Site: left antecubital; 23:58 Drug: morphine 2 mg [morphine 2 mg/mL intravenous cartridge (1 mL)] Route: IVP; Site: af2 left antecubital; 02/28 00:59 Follow up: Pain 03/26 Adult slm 00:33 Drug: Ondansetron 4 mg [ondansetron HCl 2 mg/mL intravenous solution (2 mL)] Route: af2 IVP; Site: left antecubital; 00:59 Follow up: Response: Nausea is decreased slm Order Results: Lab Order: Amylase; SPEC'M 02/28/16 22:49 Test: AMYLASE; Value: 88; Range: 25-115; Units: U/L; Status: F Lab Order: Basic Metabolic Profile; SPEC'M 02/28/16 22:49 Test: GLUCOSE, FASTING; Value: 84; Range: 70-105; Units: MG/DL; Status: F Test: BLOOD UREA NITROGEN; Value: 16; Range: 7-18; Units: MG/DL; Status: F Test: CREATININE FOR GFR; Value: 0.77; Range: 0.55-1.02; Units: MG/DL; Status: F Test: GLOMERULAR FILTRATION RATE; Value: > 60.0; Range: >51; Status: F Test: SODIUM LEVEL; Value: 143; Range: 136-145; Units: MEQ/L; Status: F Test: POTASSIUM SERUM; Value: 3.8; Range: 3.5-5.1; Units: MEQ/L; Status: F Test: CHLORIDE LEVEL; Value: 107; Range: 98-107; Units: MEQ/L; Status: F Test: CARBON DIOXIDE LEVEL; Value: 28; Range: 21-32; Units: MEQ/L; Status: F Test: ANION GAP; Value: 8; Range: 8-16; Units: MEQ/L; Status: F Test: CALCIUM LEVEL; Value: 8.7; Range: 8.5-10.1; Units: MG/DL; Status: F Test Note: ; Units are mL/min/1.73 m2 Chronic Kidney Disease Staging per NKF: Stage I & II GFR >=60 Normal to Mildly Decreased Stage III GFR 30-59 Moderately Decreased Stage IV GFR 15-29 Severely Decreased Stage V GFR <15 Very Little GFR Left ESRD GFR <15 on PRODUCT DEVELOPMENT SPECIALIST Lab Order: CBC with Diff; SPEC'M 02/28/16 22:49 Test: WHITE BLOOD COUNT; Value: 8.0; Range: 4.0-10.0; Units: K/mm3; Status: F Test: RED BLOOD COUNT; Value: 4.25; Range: 4.00-5.40; Units: M/mm3; Status: F Test: HEMOGLOBIN; Value: 12.1; Range: 12.0-16.0; Units: g/dl; Status: F Test: HEMATOCRIT; Value: 37.6; Range: 36.0-47.0; Units: %; Status: F Test: MEAN CORPUSCULAR VOLUME; Value: 88.5; Range: 80.0-96.0; Units: fl; Status: F Test: MEAN CORPUSCULAR HEMOGLOBIN; Value: 28.4; Range: 27.0-33.0; Units: pg; Status: F Test: MEAN CORPUSCULAR HGB CONC; Value: 32.1; Range: 32.0-36.5; Units: g/dl; Status: F Test: RED CELL DISTRIBUTION WIDTH; Value: 13.9; Range: 11.5-14.5; Units: %; Status: F Test: PLATELET COUNT, AUTOMATED; Value: 191; Range: 150-450; Units: k/mm3; Status: F Test: NEUTROPHILS %; Value: 43.6; Range: 36.0-66.0; Units: %; Status: F Test: LYMPH %; Value: 44.0; Range: 24.0-44.0; Units: %; Status: F Test: MONO %; Value: 5.3; Range: 0.0-5.0; Abnormal: Above high normal; Units: %; Status: F Test: EOS %; Value: 2.7; Range: 0.0-3.0; Units: %; Status: F Test: BASO %; Value: 1.7; Range: 0.0-1.0; Abnormal: Above high normal; Units: %; Status: F Test: LARGE UNSTAINED CELL %; Value: 2.7; Range: 0.0-4.0; Units: %; Status: F Test: NEUTROPHILS #; Value: 3.5; Range: 1.8-7.7; Units: K/mm3; Status: F Test: LYMPH #; Value: 3.8; Range: 1.5-4.5; Units: K/mm3; Status: F Test: MONO #; Value: 0.4; Range: 0.0-0.8; Units: K/mm3; Status: F Test: EOS #; Value: 0.2; Range: 0.0-0.50; Units: K/mm3; Status: F Test: BASO #; Value: 0.1; Range: 0.0-0.2; Units: K/mm3; Status: F Test: LARGE UNSTAINED CELL #; Value: 0.2; Range: 0.0-0.4; Units: K/mm3; Status: F Lab Order: Lipase; SPEC' 02/28/16 22:49 Test: LIPASE; Value: 443; Range: 73-393; Abnormal: Above high normal; Units: U/L; Status: F Lab Order: Liver Profile; [facility] 02/28/16 22:49 Test: AST/SGOT; Value: 25; Range: 15-37; Units: U/L; Status: F Test: ALT/SGPT; Value: 17; Range: 12-78; Units: U/L; Status: F Test: ALKALINE PHOSPHATASE; Value: 97; Range: 45-117; Units: U/L; Status: F Test: BILIRUBIN,TOTAL; Value: 0.3; Range: 0.2-1.0; Units: MG/DL; Status: F Test: BILIRUBIN,DIRECT; Value: 0.1; Range: 0.0-0.2; Units: MG/DL; Status: F Test: TOTAL PROTEIN; Value: 7.0; Range: 6.4-8.2; Units: GM/DL; Status: F Test: ALBUMIN; Value: 3.8; Range: 3.2-5.2; Units: GM/DL; Status: F Test: ALBUMIN/GLOBULIN RATIO; Value: 1.19; Range: 1.00-1.93; Status: F Lab Order: Urinalysis; SPEC 02/28/16 22:40 Test: APPEARANCE, URINE; Value: CLEAR; Range: CLEAR; Status: F Test: COLOR, URINE; Value: YELLOW; Range: YELLOW; Status: F Test: PH,URINE; Value: 6.0; Range: 5.0-9.0; Units: UNITS; Status: F Test: SPECIFIC GRAVITY URINE AUTO; Value: 1.018; Range: 1.002-1.035; Status: F Test: PROTEIN, URINE AUTO; Value: NEGATIVE; Range: NEGATIVE; Units: mg/dL; Status: F Test: GLUCOSE, URINE (UA) AUTO; Value: NEGATIVE; Range: NEGATIVE; Units: mg/dL; Status: F Test: KETONE, URINE AUTO; Value: NEGATIVE; Range: NEGATIVE; Units: mg/dL; Status: F Test: UROBILINOGEN, URINE AUTO; Value: 0.2; Range: 0.0-2.0; Units: mg/dL; Status: F Test: BILIRUBIN, URINE AUTO; Value: NEGATIVE; Range: NEGATIVE; Status: F Test: NITRITE, URINE AUTO; Value: NEGATIVE; Range: NEGATIVE; Status: F Test: LEUKOCYTE ESTERASE, URINE AUTO; Value: TRACE; Range: NEGATIVE; Abnormal: Above high normal; Status: F Test: BLOOD, URINE BLOOD; Value: NEGATIVE; Range: NEGATIVE; Status: F Test: WBC, URINE AUTO; Value: 1; Range: 0-3; Units: /HPF; Status: F Test: RBC, URINE AUTO; Value: 0; Range: 0-3; Units: /HPF; Status: F Test: BACTERIA, URINE AUTO; Value: NEGATIVE; Range: NEGATIVE; Status: F Test: SQUAMOUS EPITHELIAL CELL UR AU; Value: 0; Range: 0-6; Units: /HPF; Status: F Test: HYALINE CAST, URINE AUTO; Value: 0; Range: 0-1; Units: /LPF; Status: F Lab Order: Urine Culture; SPEC'M 02/28/16 22:40 Test: URINE CULTURE; Value: URINE CULTURE RESULT NO GROWTH; Status: F Radiology Order: CT ABD & PELVIS: IV Contrast Only Test: CT ABD & PELVIS: IV Contrast Only REASON FOR EXAMINATION: LEFT FLANK AND ABDOMINAL PAIN; ; CLINICAL HISTORY: Abdominal pain.; TECHNIQUE: Multiple axial, sagittal and coronal CT images were obtained through the abdomen and pelvi; s after administration of intravenous contrast material. Images were obtained before and after IV con; trast administration.; COMMENTS:; The liver is of uniform attenuation without mass or defect. There is no intra or extrahepatic biliary; ductal dilatation. The spleen is normal. The gallbladder is surgically absent. The pancreas is of no; rmal contour and attenuation characteristics. There is no evidence of adrenal mass.; Both kidneys demonstrate prompt and equal nephrograms. The kidneys are normal in size, shape and conf; iguration. There is no evidence of renal or ureteral mass. No renal or ureteral calculi are identifie; d. There is no hydroureter or hydronephrosis.; Status post ventral abdominal hernia repair; No evidence for appendicitis. There is relatively severe wall thickening noted involving all small b; owel segments compatible with enteritis. Jejunum is most involved.; No evidence for small or large bowel obstruction. There is no evidence of abdominal ascites or lympha; denopathy.; There is no evidence of intrinsic or extrinsic bladder mass. There is no pelvic ascites or lymphadeno; ann. Status post complete hysterectomy.; Images of the lung bases show no evidence of pleural or parenchymal mass. There are no pleural effusi; ons.; The bony structures are free of lytic or blastic lesions. Multilevel degenerative changes are seen in; volving the thoracolumbar spine. Scattered calcifications are seen involving the aorta and major bran; ches compatible with atherosclerosis.; IMPRESSION:; Enteritis, jejunum is most severely involved infectious and inflammatory etiologies are considered..; Thank you for your kind referral of this patient.; ; Outcome: 00:43 Discharge ordered by Provider. ck7 00:59 Discharge Assessment: Patient awake, alert and oriented x 3. No cognitive and/or slm functional deficits noted. Patient verbalized understanding of disposition instructions. 00:59 Discharge Assessment: Patient awake, alert and oriented x 3. No cognitive and/or slm functional deficits noted. Patient verbalized understanding of disposition instructions. patient administered narcotics - yes. Pt provided with safe discharge. The following High Risk Discharge criteria are identified: None. Discharged to home ambulatory, with friend. Condition: good. Discharge instructions given to patient, Instructed on discharge instructions, follow up and referral plans. medication usage, Demonstrated understanding of instructions, medications, Pt was receptive of discharge instructions/ teaching. Prescriptions given X 4. CT Study completed. Property :Personal belongings accompany Pt. 01:01 Patient left the ED. slm Signatures: Dispatcher [employer] EDMS Kamran Stone RN RN ms2 Junior Morales, TIME CLOCK MECHANIC TIME CLOCK MECHANIC dd6 Arabella Rosas Christopher, RPA-C RPA-Cck7 Yasmin Arvizu RN RN Jayy Evangelista,RN RN Valery Delgado,COMPENSATION INTERN COMPENSATION INTERN Kenzie Murphy,RN RN Miranda Hawk Sarah seh Chart Complete MTDD
== END 2016-02-29 01:01 | disposition home or self-care (01) ==
LOC: M ED 20:55
DX: K52.9 Noninfective gastroenteritis and colitis, unspecified (principal); R74.8 Abnormal levels of other serum enzymes; I25.2 Old myocardial infarction; Z98.84 Bariatric surgery status; Z87.891 Personal history of nicotine dependence; Z95.5 Presence of coronary angioplasty implant and graft; Z79.899 Other long term (current) drug therapy; Z79.82 Long term (current) use of aspirin; Z91.030 Bee allergy status; Z88.1 Allergy status to other antibiotic agents; Z88.5 Allergy status to narcotic agent
CPT/HCPCS: 74177; 80048; 80076; 81001; 82150; 83690; 85025; 87086; 96374; 96375; 96376; 99284; J1885; J2405; Q9967

== ENCOUNTER → 2016-10-25 | Outpatient (REF) | payer OTHER ==
[2016-10-31 00:06] LABS: Lyme Disease IgG Ab 18 kDa Ban Absent (.); Lyme Disease IgG Ab 23 kDa Ban Absent (.); Lyme Disease IgG Ab 28 kDa Ban Absent (.); Lyme Disease IgG Ab 30 kDa Ban Absent (.); Lyme Disease IgG Ab 39 kDa Ban Absent (.); Lyme Disease IgG Ab 41 kDa Ban Present (.); Lyme Disease IgG Ab 45 kDa Ban Absent (.); Lyme Disease IgG Ab 58 kDa Ban Absent (.); Lyme Disease IgG Ab 66 kDa Ban Absent (.); Lyme Disease IgG Ab 93 kDa Ban Absent (.); Lyme Disease IgG West Blot Int Negative (.); Lyme Disease IgG/IgM Antibodie <0.91 ISR (0.00-0.90); Lyme Disease IgM Ab 23 kDa Ban Absent (.); Lyme Disease IgM Ab 39 kDa Ban Absent (.); Lyme Disease IgM Ab 41 kDa Ban Present (.); Lyme Disease IgM Ab Quantitati 3.86 index (0.00-0.79); Lyme Disease IgM West Blot Int Negative (.)
== END ==
LOC: M LAB REF 09:10
PROVIDERS: ATTEND Physician Assistant
DX: R21 Rash and other nonspecific skin eruption (principal)

== ENCOUNTER 2017-03-14 14:33 | Emergency (ER) | payer OTHER ==
[2017-03-14] MEDS: MORPHINE 4 MG/ML 1ML SYRINGE IV ×2 (16:22→17:56)
[2017-03-14 16:37] LABS: BASO # 0.1 10^3/uL (0.0-0.2); BASO % 0.8 % (0.0-1.0); EOS # 0.2 10^3/uL (0.0-0.50); HEMATOCRIT 40.1 % (36.0-47.0); HEMOGLOBIN 12.6 g/dl (12.0-16.0); IMMATURE GRANULOCYTE % 0.3 % (0-0); LYMPH % 29.7 % (24.0-44.0); MEAN CORPUSCULAR HEMOGLOBIN 28.5 pg (27.0-33.0); MEAN CORPUSCULAR HGB CONC 31.4 g/dl (32.0-36.5); MEAN CORPUSCULAR VOLUME 90.7 fl (80.0-96.0); MONO # 0.4 10^3/uL (0.0-0.8); MONO % 4.4 % (0.0-5.0); NEUTROPHILS # 6.3 10^3/uL (1.8-7.7); NEUTROPHILS % 62.8 % (36.0-66.0); PLATELET COUNT, AUTOMATED 284 10^3/uL (150-450); RED BLOOD COUNT 4.42 10^6/uL (4.00-5.40)
[2017-03-14 16:49] LABS: INR 0.96; PROTHROMBIN TIME 12.9 SECONDS (12.4-14.5)
[2017-03-14] MEDS: ONDANSETRON 4MG/2ML VIAL (J2405) IV (16:49)
[2017-03-14 16:50] LABS: PARTIAL THROMBOPLASTIN TIME 30.5 SECONDS (26.8-37.9)
[2017-03-14 16:53] LABS: ANION GAP 9 MEQ/L (8-16); BLOOD UREA NITROGEN 15 MG/DL (7-18); CALCIUM LEVEL 9.2 MG/DL (8.5-10.1); CARBON DIOXIDE LEVEL 28 MEQ/L (21-32); CHLORIDE LEVEL 108 MEQ/L (98-107); CREATININE FOR GFR 0.66 MG/DL (0.55-1.30); GLOMERULAR FILTRATION RATE > 60.0 (>51); GLUCOSE, FASTING 113 MG/DL (70-100); POTASSIUM SERUM 3.7 MEQ/L (3.5-5.1); SODIUM LEVEL 145 MEQ/L (136-145)
[2017-03-14] MEDS: METOCLOPRAMIDE INJ 10MG/2ML VIAL (J2765) IV (17:16)
[2017-03-14] MEDS: GI COCKTAIL 50ML BTL(HYOSCYAMINE/MAALOX/LIDOCAINE VISCOUS)(1:3:1) PO (17:17)
== END 2017-03-14 18:47 | disposition home or self-care (01) ==
LOC: M ED 14:33
DX: S42.252A Displaced fracture of greater tuberosity of left humerus, initial encounter for closed fracture (principal); W18.30XA Fall on same level, unspecified, initial encounter; Y92.330 Ice skating rink (indoor) (outdoor) as the place of occurrence of the external cause; Y93.21 Activity, ice skating; I10 Essential (primary) hypertension; I25.10 Atherosclerotic heart disease of native coronary artery without angina pectoris; Z79.01 Long term (current) use of anticoagulants; Z79.899 Other long term (current) drug therapy; Z88.5 Allergy status to narcotic agent; Z88.1 Allergy status to other antibiotic agents; Z95.5 Presence of coronary angioplasty implant and graft; Z98.0 Intestinal bypass and anastomosis status; Z87.891 Personal history of nicotine dependence; Z98.890 Other specified postprocedural states
CPT/HCPCS: J2405

== ENCOUNTER → 2017-03-17 | Outpatient (CLI) | payer OTHER | LOC: M RAD 11:15 | DX: S42.252A Displaced fracture of greater tuberosity of left humerus, initial encounter for closed fracture (principal); X58.XXXA Exposure to other specified factors, initial encounter; Y92.89 Other specified places as the place of occurrence of the external cause | CPT/HCPCS: 73200 ==

== ENCOUNTER 2018-03-08 15:52 | Emergency (ER) | payer OTHER, SELFPAY ==
[~2018-03-08] VITALS: Ht 154.9 cm; Wt 59.1 kg
[~2018-03-08 15:52] MED LIST changes: -/MOM400 PO; -/ONDA4TA OR; +CLOP75TA2 PO; +MILK10SU PO; +NITR0.3S4 SL; +OMEP40CA2 PO; +ONDA-1 OR; +ONDA-228 PO; +PERC5TAB12 PO; +ZOFR4TAB14 PO; -ZOFR4TAB3 PO
[2018-03-08] MEDS ORDERED: ASPI81TA26 PO (15:59)
[2018-03-08] MEDS ORDERED: KETOROLAC 60 MG/2 ML VIAL (J1885) IM ONE (18:15)
--- NOTE | 2018-03-08 18:57 | REP ---
LEFT SHOULDER, THREE VIEWS: HISTORY: Fall. There is no acute fracture or dislocation. The joint spaces are normal in appearance. There is deformity of the superior lateral head of the humerus that may be secondary to previous trauma. IMPRESSION:There is no acute fracture or dislocation. Electronically Signed by Nicolas Marie MD 03/08/2018 06:59 P
--- NOTE | 2018-03-08 18:58 | REP ---
LEFT KNEE, FOUR VIEWS: HISTORY: Fall. There is no acute fracture or dislocation. There is moderate narrowing of the medial knee joint space and minimal narrowing of the lateral knee joint space. Osteophytes are present on the tibia and patella. IMPRESSION:There is no acute fracture or dislocation. Electronically Signed by Nicolas Marie MD 03/08/2018 06:59 P
--- NOTE | 2018-03-08 19:30 | REP ---
THORACIC SPINE, TWO VIEWS: HISTORY: Fall. COMPARISON: 10/25/2008 There is no acute fracture or subluxation. There is an old compression fracture of an upper thoracic vertebral body with minimal height loss. There is loss of height of several mid and lower thoracic intervertebral discs. Osteophytes are present in the mid and lower thoracic spine. IMPRESSION: There is no acute fracture or subluxation. Electronically Signed by Nicolas Marie MD 03/08/2018 08:03 P
[2018-03-08 19:55] VITALS: BP 173/87
[2018-03-08] MEDS ORDERED: TRAM50TA2 PO (20:13)
== END 2018-03-08 20:27 | disposition home or self-care (01) ==
LOC: M ED 15:52
DX: S49.92XA Unspecified injury of left shoulder and upper arm, initial encounter (principal); S89.92XA Unspecified injury of left lower leg, initial encounter; W19.XXXA Unspecified fall, initial encounter; M54.9 Dorsalgia, unspecified; I10 Essential (primary) hypertension; I25.2 Old myocardial infarction; G40.909 Epilepsy, unspecified, not intractable, without status epilepticus; Z79.82 Long term (current) use of aspirin
CPT/HCPCS: 72072; 73030; 73564; 96372; 99283; J1885

== ENCOUNTER → 2018-07-27 | Outpatient (REF) | payer OTHER ==
[~2018-07-27] MED LIST changes: +ASPI81TA26 PO; +TRAM50TA2 PO
[2018-07-27 18:21] LABS: HEMOGLOBIN 12.7 g/dl (12.0-15.5); MEAN CORPUSCULAR HEMOGLOBIN 28.8 pg (27.0-33.0); PLATELET COUNT, AUTOMATED 291 10^3/uL (150-450); RED BLOOD COUNT 4.41 10^6/uL (4.00-5.40)
[2018-07-27 18:30] LABS: BLOOD UREA NITROGEN 16 MG/DL (7-18); CALCIUM LEVEL 9.2 MG/DL (8.5-10.1); CARBON DIOXIDE LEVEL 29 MEQ/L (21-32); CHLORIDE LEVEL 105 MEQ/L (98-107); CHOLESTEROL LEVEL 287 MG/DL (<200); CHOLESTEROL RISK RATIO 3.632 (<5); CREATININE FOR GFR 0.64 MG/DL (0.55-1.30); GLOMERULAR FILTRATION RATE > 60.0 (>51); GLUCOSE, FASTING 92 MG/DL (70-100); HDL CHOLESTEROL 79 MG/DL (>40); LDL CHOLESTEROL 191 MG/DL (<100); NON-HDL-C 208 MG/DL; SODIUM LEVEL 143 MEQ/L (136-145); TRIGLYCERIDES LEVEL 83 MG/DL (<150)
[2018-07-27 18:38] LABS: VITAMIN B12 LEVEL 189 PG/ML (247-911)
== END ==
LOC: M SFHCPLAZ 15:21
DX: Z98.84 Bariatric surgery status (principal); Z01.810 Encounter for preprocedural cardiovascular examination

== ENCOUNTER → 2018-12-07 | Outpatient (REF) | payer OTHER ==
[~2018-12-07] MED LIST changes: -OMEP40CA2 PO; +OMEP40CA97 PO
[2018-12-07 18:09] LABS: HEMATOCRIT 41.4 % (36.0-47.0); HEMOGLOBIN 12.6 g/dl (12.0-15.5); MEAN CORPUSCULAR HEMOGLOBIN 29.2 pg (27.0-33.0); MEAN CORPUSCULAR HGB CONC 30.4 g/dl (32.0-36.5); MEAN CORPUSCULAR VOLUME 95.8 fl (80.0-96.0); PLATELET COUNT, AUTOMATED 290 10^3/uL (150-450); RED BLOOD COUNT 4.32 10^6/uL (4.00-5.40); WHITE BLOOD COUNT 9.1 10^3/uL (4.0-10.0)
[2018-12-07 18:13] LABS: CHOLESTEROL RISK RATIO 3.39 (<5)
[2018-12-07 18:20] LABS: FOLATE 13.4 NG/ML (>5.4)
== END ==
LOC: M SFHCPLAZ 14:28
DX: E78.2 Mixed hyperlipidemia (principal); Z98.84 Bariatric surgery status
CPT/HCPCS: 36415; 80061; 82607; 82652; 82746; 85027; 90682; G0463

== ENCOUNTER → 2019-03-19 | Outpatient (CLI) | payer OTHER ==
--- NOTE | 2019-03-19 16:13 | REPMRS ---
Patient History The patient states she has not had a clinical breast exam in over a year. Patient is postmenopausal. Family history of breast cancer at age 30 in sister. No Hormone Replacement Therapy Digital Woman Screen Mammo: March 19, 2019 - Exam #: [id number] Bilateral CC and MLO view(s) were taken. Technologist: Michelle Gilliland, Technologist No prior studies available for comparison. FINDINGS: There are scattered fibroglandular densities. There is no evidence of dominant mass, architectural distortion, or grouped microcalcification typical of malignancy. 3-D tomosynthesis shows no additional findings. Assessment: BI-RADS/ACR category 1 mammogram. Negative Mammogram. Recommendation Routine screening mammogram of both breasts in 1 year (for women over age 40). This patient's Lifetime Breast Cancer RIsk is estimated at 5.6 %. This mammogram was interpreted with the aid of an FDA-approved computer-aided dectection system. Electronically Signed By: Jaron Pavon MD 03/19/19 [id number]
== END ==
LOC: M WHC 14:36
PROVIDERS: ATTEND Hospitalist
DX: Z12.31 Encounter for screening mammogram for malignant neoplasm of breast (principal); Z78.0 Asymptomatic menopausal state; Z80.3 Family history of malignant neoplasm of breast

== ENCOUNTER → 2019-04-05 | Outpatient (REF) | payer OTHER | LOC: M LAB REF 16:20 → EEVIPCON 16:20 | PROVIDERS: ATTEND Physician Assistant | DX: R10.9 Unspecified abdominal pain (principal) ==

== ENCOUNTER → 2019-04-05 | Outpatient (CLI) | payer OTHER ==
--- NOTE | 2019-04-05 16:25 | REP ---
Pelvic sonography: History: Unspecified abdominal pain. Findings: Transabdominal scanning is performed. Visualized bladder galindo are smooth. The uterus is surgically absent. The ovaries are surgically absent. The patient is status post appendectomy. There is no evidence of free fluid, pelvic mass, adenopathy, or cystic lesion. Impression: Normal pelvic sonography status post complete hysterectomy and oophorectomy . No pelvic abnormality. Electronically Signed by Rusty Pavon MD 04/05/2019 04:17 P
[2019-04-05 16:57] LABS: BASO # 0.1 10^3/uL (0.0-0.2); BASO % 1.1 % (0.0-1.0); EOS # 0.2 10^3/uL (0.0-0.5); EOS % 2.1 % (0.0-3.0); HEMATOCRIT 40.2 % (36.0-47.0); HEMOGLOBIN 12.5 g/dl (12.0-15.5); LYMPH # 3.1 10^3/uL (1.5-5.0); MEAN CORPUSCULAR HEMOGLOBIN 28.9 pg (27.0-33.0); MEAN CORPUSCULAR HGB CONC 31.1 g/dl (32.0-36.5); MEAN CORPUSCULAR VOLUME 92.8 fl (80.0-96.0); MONO # 0.6 10^3/uL (0.0-0.8); MONO % 6.5 % (0.0-5.0); NEUTROPHILS # 5.1 10^3/uL (1.5-8.5); PLATELET COUNT, AUTOMATED 279 10^3/uL (150-450); RED BLOOD COUNT 4.33 10^6/uL (4.00-5.40); WHITE BLOOD COUNT 9.1 10^3/uL (4.0-10.0)
[2019-04-05 17:24] LABS: ALT/SGPT 19 U/L (12-78); BILIRUBIN,TOTAL 0.3 MG/DL (0.2-1.0); BLOOD UREA NITROGEN 17 MG/DL (7-18); CALCIUM LEVEL 9.1 MG/DL (8.5-10.1); CARBON DIOXIDE LEVEL 29 MEQ/L (21-32); CHLORIDE LEVEL 112 MEQ/L (98-107); CREATININE FOR GFR 0.76 MG/DL (0.55-1.30); GLOMERULAR FILTRATION RATE > 60.0 (>51); GLUCOSE, FASTING 67 MG/DL (70-100); POTASSIUM SERUM 4.1 MEQ/L (3.5-5.1); SODIUM LEVEL 146 MEQ/L (136-145)
[2019-04-05 17:25] LABS: ALBUMIN 4.1 GM/DL (3.2-5.2); LIPASE 341 U/L (73-393); TOTAL PROTEIN 7.3 GM/DL (6.4-8.2)
== END ==
LOC: M RAD 15:19
PROVIDERS: ATTEND Physician Assistant
DX: R10.9 Unspecified abdominal pain (principal)

== ENCOUNTER → 2019-04-24 | Outpatient (CLI) | payer OTHER ==
[2019-04-24 16:24] LABS: BASO # 0.1 10^3/uL (0.0-0.2); BASO % 0.9 % (0.0-1.0); EOS # 0.2 10^3/uL (0.0-0.5); HEMATOCRIT 38.8 % (36.0-47.0); LYMPH # 2.8 10^3/uL (1.5-5.0); LYMPH % 35.8 % (24.0-44.0); MEAN CORPUSCULAR HEMOGLOBIN 28.8 pg (27.0-33.0); MEAN CORPUSCULAR HGB CONC 30.9 g/dl (32.0-36.5); MEAN CORPUSCULAR VOLUME 93.3 fl (80.0-96.0); MONO # 0.5 10^3/uL (0.0-0.8); MONO % 6.9 % (0.0-5.0); NEUTROPHILS # 4.2 10^3/uL (1.5-8.5); NEUTROPHILS % 54.1 % (36.0-66.0); PLATELET COUNT, AUTOMATED 276 10^3/uL (150-450); RED BLOOD COUNT 4.16 10^6/uL (4.00-5.40); WHITE BLOOD COUNT 7.8 10^3/uL (4.0-10.0)
[2019-04-24 16:28] LABS: ALT/SGPT 23 U/L (12-78); AMYLASE 79 U/L (25-115); BILIRUBIN,TOTAL 0.2 MG/DL (0.2-1.0); BLOOD UREA NITROGEN 12 MG/DL (7-18); CARBON DIOXIDE LEVEL 29 MEQ/L (21-32); CHLORIDE LEVEL 110 MEQ/L (98-107); CREATININE FOR GFR 0.76 MG/DL (0.55-1.30); GLOMERULAR FILTRATION RATE > 60.0 (>51); GLUCOSE, FASTING 88 MG/DL (70-100); LIPASE 312 U/L (73-393); SODIUM LEVEL 142 MEQ/L (136-145); TOTAL PROTEIN 6.9 GM/DL (6.4-8.2)
--- NOTE | 2019-04-25 03:43 | REP ---
Clinical: Lower abdominal pain. Technique: Upright view of the chest with supine and upright views of the abdomen and pelvis. Findings: No evidence for bowel obstruction or perforation. Moderate fecal stasis and constipation cannot be excluded. Evidence for prior cholecystectomy and ventral hernia repair. Impression: Mild/moderate fecal stasis and constipation cannot be excluded. No obstruction or perforation noted. Electronically Signed by Kevin Nunez MD 04/25/2019 03:35 A
== END ==
LOC: M WUC 14:31
PROVIDERS: ATTEND Physician Assistant
DX: R30.0 Dysuria (principal); R10.30 Lower abdominal pain, unspecified

== ENCOUNTER → 2019-05-08 | Outpatient (CLI) | payer OTHER ==
[~2019-05-08] MED LIST changes: +GASTROGRAFIN SOLUTION 30ML (Q9963) As Ordered ONE; +ISOVUE-370 76% 100ML VIAL (Q9967) As Ordered ONE
--- NOTE | 2019-05-08 15:53 | REP ---
Clinical: Lower abdominal pain. Technique: Axial contrast enhanced images from the lung bases to the pubic symphysis using oral (per protocol) and 100 ml Isovue 370 intravenous contrast material with precontrast images of the abdomen as well as coronal and sagittal re-formations. Comparison: 02/29/2016 Findings: Lung bases are clear. Visualized heart and pericardium normal. Liver, spleen, pancreas, bilateral adrenal glands and kidneys are normal. Evidence of prior cholecystectomy with compensatory biliary ductal dilatation. The patient is status post gastric bypass surgery. There is no evidence for bowel obstruction or acute inflammatory process. Pelvis demonstrates normal bladder and evidence of prior hysterectomy. Atherosclerotic changes to the aorta and vasculature noted without aneurysm or dissection. Musculoskeletal structures without acute osseous abnormality. Impression: 1. No acute abdominopelvic pathology appreciated. Electronically Signed by Kevin Nunez MD 05/08/2019 03:45 P
== END ==
LOC: M RAD 13:40
PROVIDERS: ATTEND Obstetrics & Gynecology
DX: R10.30 Lower abdominal pain, unspecified (principal)
CPT/HCPCS: 74178; Q9963; Q9967

== ENCOUNTER → 2020-10-27 | Outpatient (CLI) | payer OTHER ==
[~2020-10-27] MED LIST changes: -GASTROGRAFIN SOLUTION 30ML (Q9963) As Ordered ONE; -ISOVUE-370 76% 100ML VIAL (Q9967) As Ordered ONE; +OMEP40CA4 PO; -OMEP40CA97 PO
--- NOTE | 2020-10-27 09:36 | REP ---
INDICATION: L KNEE OSTEARTHRIRTIS COMPARISON: 03/14/2017 TECHNIQUE: PA and lateral. FINDINGS: The mediastinum and cardiac silhouette are normal. The lung walker are clear and without acute consolidation, effusion, or pneumothorax. The skeletal structures are intact and normal. IMPRESSION: No acute cardiopulmonary process. <Electronically signed by Kevin Nunez > 10/27/20 0932
== END ==
LOC: M RAD 09:15
PROVIDERS: ATTEND Orthopaedic Surgery
DX: Z01.818 Encounter for other preprocedural examination (principal); M17.12 Unilateral primary osteoarthritis, left knee

== ENCOUNTER → 2020-11-07 | Outpatient (CLI) | payer OTHER ==
[2020-11-07 19:36] LABS: INR 0.91; PROTHROMBIN TIME 12.7 SECONDS (12.7-14.5)
[2020-11-07 19:51] LABS: ALT/SGPT 21 U/L (12-78); BILIRUBIN,TOTAL 0.2 MG/DL (0.2-1.0); BLOOD UREA NITROGEN 17 MG/DL (7-18); CALCIUM LEVEL 9.6 MG/DL (8.8-10.2); CARBON DIOXIDE LEVEL 30 MEQ/L (21-32); CHLORIDE LEVEL 111 MEQ/L (98-107); CREATININE FOR GFR 0.62 MG/DL (0.55-1.30); GLOMERULAR FILTRATION RATE > 60.0 (>45); GLUCOSE, FASTING 68 MG/DL (70-100); POTASSIUM SERUM 4.5 MEQ/L (3.5-5.1); SODIUM LEVEL 144 MEQ/L (136-145); TOTAL PROTEIN 7.7 GM/DL (6.4-8.2)
== END ==
LOC: M LAB 17:19
PROVIDERS: ATTEND Orthopaedic Surgery
DX: Z01.818 Encounter for other preprocedural examination (principal)

== ENCOUNTER → 2021-06-05 | Outpatient (CLI) | payer OTHER ==
[2021-06-05 18:07] LABS: BASO # 0.1 10^3/uL (0.0-0.2); BASO % 0.9 % (0.0-1.0); EOS # 0.1 10^3/uL (0.0-0.5); EOS % 1.4 % (0.0-3.0); HEMATOCRIT 43.7 % (36.0-47.0); HEMOGLOBIN 13.4 g/dl (12.0-15.5); LYMPH # 3.1 10^3/uL (1.5-5.0); LYMPH % 32.3 % (24.0-44.0); MEAN CORPUSCULAR HGB CONC 30.7 g/dl (32.0-36.5); MEAN CORPUSCULAR VOLUME 91.2 fl (80.0-96.0); MONO # 0.5 10^3/uL (0.0-0.8); MONO % 5.1 % (2.0-8.0); NEUTROPHILS # 5.7 10^3/uL (1.5-8.5); NEUTROPHILS % 60.1 % (36.0-66.0); PLATELET COUNT, AUTOMATED 324 10^3/uL (150-450); RED BLOOD COUNT 4.79 10^6/uL (4.00-5.40); WHITE BLOOD COUNT 9.5 10^3/uL (4.0-10.0)
[2021-06-05 18:15] LABS: C REACTIVE PROTEIN QUANTITATIV 0.41 MG/DL (0.00-0.30); RHEUMATOID FACTOR QUANT < 10.0 IU/ML (<15.0)
[2021-06-05 19:38] LABS: ERYTHROCYTE SEDIMENTATION RATE 33 mm/hr (0-30)
== END ==
LOC: M PLALAB 15:30
PROVIDERS: ATTEND Physician Assistant
DX: M25.562 Pain in left knee (principal)

== ENCOUNTER → 2021-07-07 | Outpatient (CLI) | payer OTHER | LOC: M RAD 09:23 | PROVIDERS: ATTEND Orthopaedic Surgery | DX: Z96.652 Presence of left artificial knee joint (principal) | CPT/HCPCS: 78315; A9503 ==

== ENCOUNTER → 2021-08-06 | Outpatient (CLI) | payer OTHER | LOC: M PLAIMG 13:03 | PROVIDERS: ATTEND Orthopaedic Surgery | DX: M79.631 Pain in right forearm (principal) ==

== ENCOUNTER → 2021-12-18 | Outpatient (CLI) | payer OTHER | LOC: M WUC 09:08 | PROVIDERS: ATTEND Physician Assistant | DX: S93.401A Sprain of unspecified ligament of right ankle, initial encounter (principal) ==

== ENCOUNTER → 2022-01-18 | Outpatient (REF) | payer OTHER ==
[2022-01-18 18:30] LABS: SOURCE, BODY FLUID LFT KNEE; SYNOVIAL FLUID COLOR PALE YELLOW (COLORLESS)
[2022-01-18 20:31] LABS: CRYSTALS, BODY FLUID NONE SEEN (NONE SEEN); SOURCE, BODY FLUID CRYSTALS LFT KNEE
[2022-01-18 21:59] LABS: SOURCE, BODY FLUID GLUCOSE LFT KNEE
== END ==
LOC: M LAB REF 17:13
PROVIDERS: ATTEND Physical Medicine & Rehabilitation
DX: Z96.652 Presence of left artificial knee joint (principal)

== ENCOUNTER → 2022-01-18 | Outpatient (REF) | payer OTHER ==
[2022-01-18 17:06] LABS: BASO # 0.1 10^3/uL (0.0-0.2); EOS # 0.1 10^3/uL (0.0-0.5); EOS % 0.9 % (0.0-3.0); HEMATOCRIT 42.7 % (36.0-47.0); HEMOGLOBIN 12.9 g/dl (12.0-15.5); LYMPH # 2.5 10^3/uL (1.5-5.0); LYMPH % 25.6 % (24.0-44.0); MEAN CORPUSCULAR HEMOGLOBIN 27.9 pg (27.0-33.0); MEAN CORPUSCULAR HGB CONC 30.2 g/dl (32.0-36.5); MEAN CORPUSCULAR VOLUME 92.4 fl (80.0-96.0); MONO # 0.4 10^3/uL (0.0-0.8); MONO % 4.5 % (2.0-8.0); NEUTROPHILS # 6.7 10^3/uL (1.5-8.5); NEUTROPHILS % 67.8 % (36.0-66.0); PLATELET COUNT, AUTOMATED 362 10^3/uL (150-450); RED BLOOD COUNT 4.62 10^6/uL (4.00-5.40); WHITE BLOOD COUNT 9.9 10^3/uL (4.0-10.0)
[2022-01-18 17:12] LABS: APPEARANCE, URINE MANUAL HAZY (CLEAR); COLOR, URINE MANUAL LT YELLOW (YELLOW)
[2022-01-18 17:13] LABS: BILIRUBIN, URINE MANUAL NEGATIVE (NEGATIVE); BLOOD URINE MANUAL NEGATIVE (NEGATIVE); GLUCOSE, URINE (UA) MANUAL NEGATIVE (NEGATIVE); KETONE, URINE MANUAL NEGATIVE (NEGATIVE); LEUKOCYTE ESTERASE, URINE MAN POSITIVE (NEGATIVE); NITRITE, URINE MANUAL POSITIVE (NEGATIVE); PROTEIN, URINE MANUAL TRACE mg/dL (NEGATIVE); SPECIFIC GRAVITY,URINE MANUAL 1.015 (1.002-1.035); UROBILINOGEN, URINE MANUAL NORMAL (NORMAL)
[2022-01-18 17:36] LABS: BACTERIA, URINE LARGE AMOUNT; RBC, URINE 0-1 /hpf (0-3); SQUAMOUS EPITHELIAL CELL URINE SMALL AMOUNT /hpf (SMALL AMT); WBC, URINE 15-20 /hpf (0-3)
[2022-01-18 17:37] LABS: HYALINE CAST, URINE NONE SEEN /lpf (0-1); MUCUS, URINE SMALL AMOUNT (NEGATIVE); TOTAL PROTEIN,RANDOM URINE 6.7 MG/DL (0.0-14.0)
[2022-01-18 17:41] LABS: CREATININE,RANDOM URINE 67.1 MG/DL; MAGNESIUM LEVEL 2.3 MG/DL (1.8-2.4)
[2022-01-18 17:42] LABS: COMPLEMENT C3 168.5 MG/DL (90.0-170.0); COMPLEMENT C4 36.5 MG/DL (12-36)
[2022-01-18 17:45] LABS: TOTAL 25(OH) VITAMIN D 28.2 NG/ML (20.0-100.0)
== END ==
LOC: M SFHCRHEU 14:41
PROVIDERS: ATTEND Internal Medicine
DX: R76.8 Other specified abnormal immunological findings in serum (principal); M79.10 Myalgia, unspecified site

== ENCOUNTER → 2022-06-01 | Outpatient (CLI) | payer OTHER | LOC: M RAD 09:57 | PROVIDERS: ATTEND Orthopaedic Surgery | DX: M25.569 Pain in unspecified knee (principal) | CPT/HCPCS: 78315; A9503 ==

== ENCOUNTER → 2022-06-02 | Outpatient (CLI) | payer OTHER ==
[2022-06-02 13:25] LABS: BASO # 0.1 10^3/uL (0.0-0.2); BASO % 1.1 % (0.0-1.0); EOS # 0.2 10^3/uL (0.0-0.5); EOS % 2.9 % (0.0-3.0); HEMATOCRIT 39.2 % (36.0-47.0); LYMPH # 2.5 10^3/uL (1.5-5.0); LYMPH % 32.6 % (24.0-44.0); MEAN CORPUSCULAR HEMOGLOBIN 28.2 pg (27.0-33.0); MEAN CORPUSCULAR HGB CONC 30.6 g/dl (32.0-36.5); MEAN CORPUSCULAR VOLUME 92.2 fl (80.0-96.0); MONO # 0.6 10^3/uL (0.0-0.8); MONO % 8.2 % (2.0-8.0); NEUTROPHILS # 4.2 10^3/uL (1.5-8.5); NEUTROPHILS % 54.9 % (36.0-66.0); PLATELET COUNT, AUTOMATED 294 10^3/uL (150-450); RED BLOOD COUNT 4.25 10^6/uL (4.00-5.40); WHITE BLOOD COUNT 7.6 10^3/uL (4.0-10.0)
[2022-06-02 13:42] LABS: ERYTHROCYTE SEDIMENTATION RATE 24 mm/hr (0-30)
== END ==
LOC: M WUC 10:03
PROVIDERS: ATTEND Orthopaedic Surgery
DX: M25.569 Pain in unspecified knee (principal)

== ENCOUNTER → 2022-08-10 | Outpatient (CLI) | payer OTHER | LOC: M PAIN 08:00 | PROVIDERS: ATTEND Nurse Practitioner Family | DX: M25.562 Pain in left knee (principal); G89.29 Other chronic pain; G47.33 Obstructive sleep apnea (adult) (pediatric); I10 Essential (primary) hypertension; K44.9 Diaphragmatic hernia without obstruction or gangrene; I25.2 Old myocardial infarction; Z95.5 Presence of coronary angioplasty implant and graft; Z79.1 Long term (current) use of non-steroidal anti-inflammatories (NSAID); Z79.891 Long term (current) use of opiate analgesic; Z79.899 Other long term (current) drug therapy; Z87.891 Personal history of nicotine dependence; Z88.5 Allergy status to narcotic agent; Z88.8 Allergy status to other drugs, medicaments and biological substances; Z91.030 Bee allergy status ==

== ENCOUNTER → 2022-10-05 | Outpatient (CLI) | payer OTHER | LOC: M PAIN 09:45 | PROVIDERS: ATTEND Anesthesiology | DX: Z01.818 Encounter for other preprocedural examination (principal); M25.562 Pain in left knee; M17.12 Unilateral primary osteoarthritis, left knee; Z98.890 Other specified postprocedural states; K44.9 Diaphragmatic hernia without obstruction or gangrene; G47.33 Obstructive sleep apnea (adult) (pediatric); I10 Essential (primary) hypertension; Z98.82 Breast implant status; I25.2 Old myocardial infarction; Z87.891 Personal history of nicotine dependence; Z79.891 Long term (current) use of opiate analgesic; Z79.899 Other long term (current) drug therapy; Z88.5 Allergy status to narcotic agent; Z88.8 Allergy status to other drugs, medicaments and biological substances; Z91.030 Bee allergy status ==

== ENCOUNTER → 2022-10-20 | Outpatient (CLI) | payer OTHER ==
[~2022-10-20] MED LIST changes: +ACET-683 PO; +REPA140I2 SC
[2022-10-20 14:49] LABS: HEMATOCRIT 40.3 % (36.0-47.0); HEMOGLOBIN 12.6 g/dl (12.0-15.5); MEAN CORPUSCULAR HEMOGLOBIN 28.5 pg (27.0-33.0); MEAN CORPUSCULAR HGB CONC 31.3 g/dl (32.0-36.5); MEAN CORPUSCULAR VOLUME 91.2 fl (80.0-96.0); PLATELET COUNT, AUTOMATED 321 10^3/uL (150-450); RED BLOOD COUNT 4.42 10^6/uL (4.00-5.40); WHITE BLOOD COUNT 9.1 10^3/uL (4.0-10.0)
[2022-10-20 15:05] LABS: HEMOGLOBIN A1c 5.8 % (4.0-6.0)
[2022-10-20 15:22] LABS: ALBUMIN 3.7 G/DL (3.2-5.2); ALKALINE PHOSPHATASE 118 U/L (46-116); ALT/SGPT < 9 U/L (7.0-40); AST/SGOT 17 U/L (<34); BILIRUBIN,TOTAL 0.4 MG/DL (0.3-1.2); BLOOD UREA NITROGEN 14 MG/DL (9-23); CALCIUM LEVEL 9.1 MG/DL (8.3-10.6); CARBON DIOXIDE LEVEL 30 MMOL/L (20-31); CHLORIDE LEVEL 109 MMOL/L (98-107); CHOLESTEROL LEVEL 168 MG/DL (<200); CREATININE FOR GFR 0.65 MG/DL (0.55-1.30); GLOMERULAR FILTRATION RATE > 60.0 (>45); GLUCOSE, FASTING 86 MG/DL (74-106); HDL CHOLESTEROL 76.2 MG/DL (>40); NON-HDL-C 91.8 MG/DL; SODIUM LEVEL 143 MMOL/L (136-145); TOTAL PROTEIN 6.8 G/DL (5.7-8.2); TRIGLYCERIDES LEVEL 104 MG/DL (<150)
== END ==
LOC: M PLALAB 11:42
PROVIDERS: ATTEND Student in an Organized Health Care Education/Training Program
DX: Z01.818 Encounter for other preprocedural examination (principal)

== ENCOUNTER 2022-11-01 08:45 | Day surgery (SDC) | payer OTHER ==
[~2022-11-01] VITALS: Ht 154.9 cm; Wt 65.0 kg
[~2022-11-01 08:45] MED LIST changes: +LIDOCAINE 2% 100MG/5ML SDV (FOR ANES.) As Ordered ONE; +MIDAZOLAM INJ 2MG/2ML VIAL As Ordered ONE; +ONDANSETRON 4MG 2ML VIAL As Ordered ONE; +fentaNYL 100 MCG/2 ML INJECTION As Ordered ONE; +propofoL 200 MG/20 ML VIAL As Ordered ONE
[2022-11-01] MEDS ORDERED: LR 1,000 ML IV SCH (09:20)
[2022-11-01] MEDS ORDERED: ISOVUE-M 300 61% 15ML VIAL As Ordered ONE (10:25)
[2022-11-01] MEDS ORDERED: LIDOCAINE 1% MDV 20ML VIAL As Ordered ONE (10:25)
[2022-11-01] MEDS ORDERED: dexmedeTOMIDine (4MCG/ML)200MCG/50ML BTL (PRECEDEX) As Ordered ONE (10:28)
[2022-11-01] MEDS ORDERED: LACRILUBE (AKWA TEARS) OPHTH OINT 3.5GM As Ordered ONE (11:26)
[2022-11-01 12:30] VITALS: BP 160/95; TEMP 97.5; O2SAT 98
== END 2022-11-01 12:30 | disposition home or self-care (01) ==
LOC: M SDC 08:45
PROVIDERS: ATTEND Anesthesiology
DX: M17.12 Unilateral primary osteoarthritis, left knee (principal); M25.562 Pain in left knee; I25.10 Atherosclerotic heart disease of native coronary artery without angina pectoris; I25.2 Old myocardial infarction; Z95.5 Presence of coronary angioplasty implant and graft; Z88.1 Allergy status to other antibiotic agents; Z88.5 Allergy status to narcotic agent; Z91.048 Other nonmedicinal substance allergy status; Z91.030 Bee allergy status
CPT/HCPCS: 64454; 76000; J0665; J1100; J2250; J3010; Q9967

== ENCOUNTER → 2022-11-16 | Outpatient (CLI) | payer OTHER ==
[~2022-11-16] MED LIST changes: -LIDOCAINE 2% 100MG/5ML SDV (FOR ANES.) As Ordered ONE; -MIDAZOLAM INJ 2MG/2ML VIAL As Ordered ONE; -ONDANSETRON 4MG 2ML VIAL As Ordered ONE; -fentaNYL 100 MCG/2 ML INJECTION As Ordered ONE; -propofoL 200 MG/20 ML VIAL As Ordered ONE
== END ==
LOC: M PAIN 09:45
PROVIDERS: ATTEND Anesthesiology
DX: M25.562 Pain in left knee (principal); G89.29 Other chronic pain; G47.33 Obstructive sleep apnea (adult) (pediatric); I10 Essential (primary) hypertension; I25.2 Old myocardial infarction; Z87.891 Personal history of nicotine dependence; Z79.82 Long term (current) use of aspirin; Z79.899 Other long term (current) drug therapy; Z79.891 Long term (current) use of opiate analgesic; Z88.5 Allergy status to narcotic agent; Z88.8 Allergy status to other drugs, medicaments and biological substances; Z91.030 Bee allergy status

== ENCOUNTER → 2022-12-14 | Outpatient (CLI) | payer OTHER ==
[~2022-12-14] MED LIST changes: +ACET325C5 PO; +AMOX875T2 PO; +CARV3.12; +IBUP80TA PO
== END ==
LOC: M CARPUL 13:17
PROVIDERS: ATTEND Student in an Organized Health Care Education/Training Program
DX: Z01.818 Encounter for other preprocedural examination (principal)

== ENCOUNTER 2022-12-18 11:26 | Emergency (ER) | payer OTHER ==
[~2022-12-18] VITALS: Ht 154.9 cm; Wt 63.6 kg
[~2022-12-18 11:26] MED LIST changes: -ACET325C5 PO; -AMOX875T2 PO; -CARV3.12; -IBUP80TA PO
[2022-12-18] MEDS ORDERED: CARV3.12 (11:45)
[2022-12-18] MEDS ORDERED: PERCOCET 5MG/325MG TAB PO ONE (14:05)
[2022-12-18 14:43] LABS: BASO # 0.1 10^3/uL (0.0-0.2); BASO % 0.8 % (0.0-1.0); EOS # 0.2 10^3/uL (0.0-0.5); EOS % 1.9 % (0.0-3.0); HEMATOCRIT 41.6 % (36.0-47.0); HEMOGLOBIN 13.1 g/dl (12.0-15.5); LYMPH # 2.7 10^3/uL (1.5-5.0); MEAN CORPUSCULAR HEMOGLOBIN 28.4 pg (27.0-33.0); MEAN CORPUSCULAR HGB CONC 31.5 g/dl (32.0-36.5); MONO # 0.5 10^3/uL (0.0-0.8); NEUTROPHILS % 59.1 % (36.0-66.0); PLATELET COUNT, AUTOMATED 314 10^3/uL (150-450); RED BLOOD COUNT 4.62 10^6/uL (4.00-5.40); WHITE BLOOD COUNT 8.4 10^3/uL (4.0-10.0)
[2022-12-18] MEDS ORDERED: ISOVUE-370 76% 100ML VIAL As Ordered ONE (14:51)
[2022-12-18] MEDS ORDERED: PERC5TAB12 PO (16:45)
[2022-12-18] MEDS ORDERED: AMOX875T2 PO (16:45)
[2022-12-18] MEDS ORDERED: IBUP80TA PO (16:45)
[2022-12-18] MEDS ORDERED: ACET325C5 PO (16:45)
[2022-12-18 17:04] VITALS: BP 140/92; TEMP 97.6; O2SAT 100
== END 2022-12-18 17:20 | disposition home or self-care (01) ==
LOC: M ED 11:26
DX: K02.9 Dental caries, unspecified (principal); K04.7 Periapical abscess without sinus; I25.10 Atherosclerotic heart disease of native coronary artery without angina pectoris; I25.2 Old myocardial infarction; I10 Essential (primary) hypertension; Z79.899 Other long term (current) drug therapy; Z88.5 Allergy status to narcotic agent; Z88.1 Allergy status to other antibiotic agents; Z88.8 Allergy status to other drugs, medicaments and biological substances; Z91.89 Other specified personal risk factors, not elsewhere classified; Z91.030 Bee allergy status
CPT/HCPCS: 70487; 80047; 85025; 99283; Q9967

== ENCOUNTER → 2023-01-19 | Outpatient (CLI) | payer OTHER ==
[~2023-01-19] MED LIST changes: +ACET325C5 PO; +AMOX875T2 PO; +CARV3.12; +IBUP80TA PO
== END ==
LOC: M PAIN 09:00
PROVIDERS: ATTEND Anesthesiology
DX: M25.562 Pain in left knee (principal); M79.2 Neuralgia and neuritis, unspecified; K44.9 Diaphragmatic hernia without obstruction or gangrene; G47.33 Obstructive sleep apnea (adult) (pediatric); I10 Essential (primary) hypertension; I25.2 Old myocardial infarction; Z87.891 Personal history of nicotine dependence; Z79.891 Long term (current) use of opiate analgesic; Z79.82 Long term (current) use of aspirin; Z79.899 Other long term (current) drug therapy; Z88.5 Allergy status to narcotic agent; Z88.8 Allergy status to other drugs, medicaments and biological substances; Z91.030 Bee allergy status

== ENCOUNTER → 2023-03-29 | Outpatient (CLI) | payer OTHER ==
[~2023-03-29] MED LIST changes: -CARV3.12; +CARV3.12 PO
== END ==
LOC: M PAIN 09:15
PROVIDERS: ATTEND Anesthesiology
DX: Z01.818 Encounter for other preprocedural examination (principal); M25.562 Pain in left knee; M17.12 Unilateral primary osteoarthritis, left knee; K44.9 Diaphragmatic hernia without obstruction or gangrene; G47.33 Obstructive sleep apnea (adult) (pediatric); I10 Essential (primary) hypertension; I25.2 Old myocardial infarction; Z87.891 Personal history of nicotine dependence; Z79.82 Long term (current) use of aspirin; Z79.899 Other long term (current) drug therapy; Z88.5 Allergy status to narcotic agent; Z88.8 Allergy status to other drugs, medicaments and biological substances; Z91.030 Bee allergy status

== ENCOUNTER → 2023-04-05 | Outpatient (CLI) | payer OTHER ==
[2023-04-05 15:59] LABS: BLOOD UREA NITROGEN 21 MG/DL (9-23); CALCIUM LEVEL 9.6 MG/DL (8.3-10.6); CARBON DIOXIDE LEVEL 31 MMOL/L (20-31); CHLORIDE LEVEL 105 MMOL/L (98-107); CHOLESTEROL LEVEL 208 MG/DL (<200); CHOLESTEROL RISK RATIO 2.78 (<5); CREATININE FOR GFR 0.66 MG/DL (0.55-1.30); GLOMERULAR FILTRATION RATE > 60.0 (>45); GLUCOSE, FASTING 100 MG/DL (74-106); HDL CHOLESTEROL 74.6 MG/DL (>40); LDL CHOLESTEROL 105.4 MG/DL (<100); NON-HDL-C 133.4 MG/DL; POTASSIUM SERUM 4.7 MMOL/L (3.5-5.1); SODIUM LEVEL 142 MMOL/L (136-145); TRIGLYCERIDES LEVEL 140 MG/DL (<150)
[2023-04-05 16:02] LABS: HEMOGLOBIN A1c 5.5 % (4.0-6.0)
[2023-04-05 16:07] LABS: BASO # 0.1 10^3/uL (0.0-0.2); BASO % 1.2 % (0.0-1.0); EOS # 0.2 10^3/uL (0.0-0.5); EOS % 2.2 % (0.0-3.0); HEMATOCRIT 43.3 % (36.0-47.0); HEMOGLOBIN 13.4 g/dl (12.0-15.5); LYMPH # 2.7 10^3/uL (1.5-5.0); LYMPH % 31.4 % (24.0-44.0); MEAN CORPUSCULAR HEMOGLOBIN 28.3 pg (27.0-33.0); MEAN CORPUSCULAR HGB CONC 30.9 g/dl (32.0-36.5); MEAN CORPUSCULAR VOLUME 91.5 fl (80.0-96.0); MONO # 0.6 10^3/uL (0.0-0.8); MONO % 7.2 % (2.0-8.0); NEUTROPHILS % 57.7 % (36.0-66.0); PLATELET COUNT, AUTOMATED 330 10^3/uL (150-450); RED BLOOD COUNT 4.73 10^6/uL (4.00-5.40); WHITE BLOOD COUNT 8.7 10^3/uL (4.0-10.0)
== END ==
LOC: M PLALAB 12:23
PROVIDERS: ATTEND Student in an Organized Health Care Education/Training Program
DX: I25.2 Old myocardial infarction (principal)

== ENCOUNTER 2023-04-07 14:36 | Day surgery (SDC) | payer OTHER ==
[~2023-04-07] VITALS: Ht 154.9 cm; Wt 68.9 kg
[2023-04-07] MEDS ORDERED: TRIAMCINOLONE ACETONIDE SUSP 40MG/ML 1ML VIAL As Ordered ONE (14:54)
[2023-04-07] MEDS ORDERED: LR 1,000 ML IV SCH (15:20)
[2023-04-07] MEDS ORDERED: LIDOCAINE 2% 100MG/5ML SDV (FOR ANES.) As Ordered ONE (16:16)
[2023-04-07] MEDS ORDERED: propofoL 200 MG/20 ML VIAL As Ordered ONE (16:16)
[2023-04-07] MEDS: LIDOCAINE 1% SDV 30ML VIAL As Ordered ONE (16:56)
[2023-04-07] MEDS: ISOVUE-M 300 61% 15ML VIAL As Ordered ONE (16:56)
[2023-04-07 18:10] VITALS: BP 143/78; TEMP 97.2; O2SAT 100
== END 2023-04-07 18:21 | disposition home or self-care (01) ==
LOC: M SDC 14:36
PROVIDERS: ATTEND Anesthesiology
DX: M17.12 Unilateral primary osteoarthritis, left knee (principal); I25.10 Atherosclerotic heart disease of native coronary artery without angina pectoris; I10 Essential (primary) hypertension; I25.2 Old myocardial infarction; Z95.5 Presence of coronary angioplasty implant and graft; Z98.84 Bariatric surgery status; Z91.048 Other nonmedicinal substance allergy status; Z91.030 Bee allergy status; Z88.8 Allergy status to other drugs, medicaments and biological substances; Z88.1 Allergy status to other antibiotic agents; Z88.5 Allergy status to narcotic agent; Z79.899 Other long term (current) drug therapy; Z79.82 Long term (current) use of aspirin
CPT/HCPCS: 64454; 76000; J0665; J3301; Q9967

== ENCOUNTER → 2023-04-15 | Outpatient (REF) | payer OTHER ==
[~2023-04-15] MED LIST changes: +DULC10SU2 PR; +SENN1TAB41 PO
== END ==
LOC: M LAB REF 18:27
PROVIDERS: ATTEND Physician Assistant
DX: R10.84 Generalized abdominal pain (principal); R14.0 Abdominal distension (gaseous); B96.20 Unspecified Escherichia coli [E. coli] as the cause of diseases classified elsewhere

== ENCOUNTER → 2023-04-21 | Outpatient (CLI) | payer OTHER ==
[~2023-04-21] MED LIST changes: -SENN1TAB41 PO; +SENN1TAB85 PO
== END ==
LOC: M PAIN 15:30
PROVIDERS: ATTEND Anesthesiology
DX: M25.562 Pain in left knee (principal); M17.12 Unilateral primary osteoarthritis, left knee; G47.33 Obstructive sleep apnea (adult) (pediatric); I10 Essential (primary) hypertension; I25.2 Old myocardial infarction; Z79.891 Long term (current) use of opiate analgesic; Z79.82 Long term (current) use of aspirin; Z87.891 Personal history of nicotine dependence; Z88.5 Allergy status to narcotic agent; Z88.8 Allergy status to other drugs, medicaments and biological substances; Z91.030 Bee allergy status